=== PATIENT | female | born 1945 | race Caucasian/White ===

== ENCOUNTER → 2016-12-09 | Day surgery (SDC) | payer MEDICARE ==
[~2016-12-09] VITALS: Ht 167.6 cm; Wt 100.0 kg
[~2016-12-09] MED LIST: AMBI5TAB PO; BUPIVACAINE HCL PF 0.5% 30 ML VIAL ONE; CEPH-460 PO; CIPR500T2 PO; DULA10IN SQ; FAMOTIDINE 20 MG/2 ML VIAL ONE; HYDR-3288 PO; HYDR-3516 PO; LACTATED RINGER'S 1000 ML INJ 1,000 ML ONE; LIDOCAINE HCL 1% 20 ML VIAL ONE; LIDOCAINE HCL 2% 50 ML VIAL ONE; LISI20TA PO; METR-1 PO; MIDAZOLAM HCL 2 MG/2 ML VIAL ONE; NEOMYCIN/POLYMYXIN 1 ML G.U. IRRIGANT IR ONE; OMEP20TA PO; OXYB5TAB10 PO; PROPOFOL 200 MG/20 ML AMP IV ONE; SIMV20TA PO; SODIUM CHLORIDE 0.9% INJ 50 ML ONE; VENL75TA PO; ceFAZolin INJ 1,000 MG VIAL ONE
[2016-12-09 07:12] LABS: HEMATOCRIT 42.3 % (35.0-46.0); MEAN CELL VOLUME 88.1 FL (80.0-100.0); MEAN CORPUSCULAR HEMOGLOBIN 28.7 PG (27.0-34.0); MEAN CORPUSCULAR HGB CONC 32.6 % (32.0-36.0); PLATELET COUNT 293 TH/MM3 (150-450); REVIEW FLAG FINAL; WHITE BLOOD COUNT 7.3 TH/MM3 (4.0-11.0)
[2016-12-09 10:05] VITALS: BP 115/65; PULSE 79; RESP 16; TEMP 98.1; O2SAT 98
--- NOTE | 2016-12-09 11:07 | EKG ---
Date Performed: 12/09/2016 Time Performed: 07:04:06 PTAGE: 71 years EKG: Sinus rhythm WITH SINUS ARRHYTHMIA MARKED LEFT AXIS DEVIATION LOW QRS VOLTAGE IN PRECORDIAL LEADS ABNORMAL ECG NO PREVIOUS TRACING DOCTOR: Pato Strong Interpretating Date/Time 12/09/2016 11:06:44
--- NOTE | 2016-12-09 11:52 | MP ---
cc: RYAN JAIN III, M.D. 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 PROCEDURE 1. Revision amputation right middle finger with bony contouring and soft tissue rearrangement 2. Use of image intensifier SURGEON Ryan Jain III, MD PROCEDURE The patient brought to the operating room and placed supine on the operating table. After the correct site and side of surgery were verified by members of each team in the room multiple times including the patient, myself and after preop markings and preoperative written consent were verified by everyone and after adequate preoperative time-out was performed to everyone's satisfaction and after adequate IV sedation had been achieved, the right upper extremity was prepped and draped in tradition sterile surgical fashion. A 50/50 mixture of 2% plain lidocaine and 0.5% plain Marcaine was infiltrated in the skin and subcutaneous tissue at the level of palm at the metacarpal level to provide for right middle finger block. Using the mini C-arm, preoperative contour of the distal phalangeal remnant was visualized. The finger tourniquet using two smallest fingers from size 6 sterile gloves were applied to the middle finger. The previously made wound was used for the incision. This was at the distal most aspect of the nail bed remnant in the skin. Blunt and sharp dissection was then used to identified the distal phalangeal remnant and this was then recontoured to be more sloping and rounded and have less bony prominences radially and ulnarly. This was verified using mini C-arm. Following this, the skin and soft tissue rearrangement which included scar revision, as well as advancement flap closure to recontour the fingertip to a much more cosmetically pleasing appearance was done prior to the closure. A thorough irrigation was performed with saline and then 4-0 chromic sutures were used to close the tip of the finger. Multiple V-Y flap closures were used to re-contour the tip of the finger which was round and had a much more natural appearance. The final x-rays were obtained. The finger tourniquet was removed and the finger became soft, pink and warm with brisk capillary refill of less than two seconds. The hand and arm were thoroughly cleansed and dried. Betadine Adaptic dressings were applied on top of the wound followed by a bulky soft dressing. The patient awakened from anesthesia and transported to the Post Anesthesia Care Unit awake and in stable condition at the end of the case. Sponge, needle, and instrument counts were correct at the end of the case as reported by the nurses in the room. MD LEONORA Calixto III/SUSANNA /9:50 AM /11:35 AM
== END | disposition home or self-care (01) ==
LOC: HSDC 05:58
PROVIDERS: ATTEND Orthopaedic Surgery Hand Surgery
DX: T87.89 Other complications of amputation stump (principal); I10 Essential (primary) hypertension; E78.5 Hyperlipidemia, unspecified; Z01.818 Encounter for other preprocedural examination; Z01.810 Encounter for preprocedural cardiovascular examination
CPT/HCPCS: 01830; 26952; 36415; 76000; 85027; 93005; J0690; J2250; J7120

== ENCOUNTER 2017-02-05 19:34 | Inpatient (IN) | payer MEDICARE ==
[~2017-02-05] VITALS: Ht 172.7 cm; Wt 106.3 kg
[~2017-02-05 19:34] MED LIST changes: -AMBI5TAB PO; -BUPIVACAINE HCL PF 0.5% 30 ML VIAL ONE; -CEPH-460 PO; -CIPR500T2 PO; -FAMOTIDINE 20 MG/2 ML VIAL ONE; -HYDR-3288 PO; -HYDR-3516 PO; -LACTATED RINGER'S 1000 ML INJ 1,000 ML ONE; -LIDOCAINE HCL 1% 20 ML VIAL ONE; -LIDOCAINE HCL 2% 50 ML VIAL ONE; -METR-1 PO; -MIDAZOLAM HCL 2 MG/2 ML VIAL ONE; -NEOMYCIN/POLYMYXIN 1 ML G.U. IRRIGANT IR ONE; -PROPOFOL 200 MG/20 ML AMP IV ONE; -SODIUM CHLORIDE 0.9% INJ 50 ML ONE; -ceFAZolin INJ 1,000 MG VIAL ONE
[2017-02-05] MEDS ORDERED: SODIUM CHLOR 0.9% 1000 ML INJ 1,000 ML IV SCH (19:38)
[2017-02-05] MEDS ORDERED: ONDANSETRON HCL 4 MG/2 ML VIAL IVP ONE (19:45)
[2017-02-05] MEDS ORDERED: SODIUM CHLORIDE 0.9% FLUSH 5 ML FLUSH IVF PRN (19:45)
[2017-02-05] MEDS ORDERED: MORPHINE SULFATE 4 MG/ML INJ IV PUSH ONE ×2 (19:45→21:45)
[2017-02-05 19:48] VITALS: BP 125/55; PULSE 77; RESP 18; TEMP 98; O2SAT 99
--- NOTE | 2017-02-05 19:52 | PD ---
HPI Chief Complaint: abdominal pain Time Seen by Provider: 19:38 Travel History International Travel<30 days: No Contact w/Intl Traveler<30days: No History of Present Illness HPI This is a 71-year-old female who presents to the emergency department having had sudden onset of lower abdominal pain described as severe and cramping, associated with multiple episodes of vomiting and watery diarrhea,, constant to the point where she was vomiting and using the toilet at the same time. She feels feverish and chills. She said she just ate fish at [employer] about an hour prior to the onset of her symptoms. She's never been sick like this before. She does have a history of a gastroplasty which was reversed 20 years ago. Otherwise she's had no abdominal surgeries. PFSH Past Medical History Cancer: No Cardiovascular Problems: No Diabetes: No Endocrine: No Gastrointestinal Disorders: Yes (GERD) Genitourinary: No Hepatitis: No Hiatal Hernia: No Hypertension: Yes Immune Disorder: No Musculoskeletal: No Neurologic: No Psychiatric: No Reproductive: No Respiratory: No Thyroid Disease: No Menopausal: Yes Past Surgical History Abdominal Surgery: Yes (APPENDECTOMY, GASTROPLASTY) AICD: No Cardiac Surgery: No Ear Surgery: No Endocrine Surgery: No Eye Surgery: No Genitourinary Surgery: No Gynecologic Surgery: No Joint Replacement: Yes (BILAT TOTAL KNEE, RIGHT TOTAL HIP) Oral Surgery: No Pacemaker: No Thoracic Surgery: No Social History Alcohol Use: Yes (OCCASSIONAL BEER) Tobacco Use: No Allergies-Medications (Allergen,Severity, Reaction): Coded Allergies: No Known Allergies (Unverified , 02/05/17) Reported Meds & Prescriptions Reported Meds & Active Scripts Active Reported Trulicity Inj (Dulaglutide Inj) 0.75 Mg/0.5 Ml Pen 0.75 Mg SQ Q7D Lisinopril-Hctz 20-12.5 Mg Tab 1 Tab PO DAILY Omeprazole 20 Mg Tab 20 Mg PO DAILY Simvastatin Unknown Strength Tab Unknown Dose PO DAILY Effexor (Venlafaxine HCl) 75 Mg Tab 150 Mg PO Q12H Ditropan (Oxybutynin Chloride) 5 Mg Tab 10 Mg PO DAILY Review of Systems Except as stated in HPI: all other systems reviewed are Neg Physical Exam Narrative GENERAL: Uncomfortable appearing. SKIN: Warm and dry. HEAD: Atraumatic. Normocephalic. EYES: Pupils equal and round. No injection or drainage. ENT: Moist mucous membranes NECK: Trachea midline. CARDIOVASCULAR: Regular rate and rhythm. No murmur appreciated. RESPIRATORY: Clear to auscultation. Breath sounds equal bilaterally. GASTROINTESTINAL: Abdomen soft, tender to palpation in the epigastrium and lower abdomen with guarding. MUSCULOSKELETAL: No obvious deformities. NEUROLOGICAL: Awake and alert. No obvious cranial nerve deficits. Moving all extremities. PSYCHIATRIC: Appropriate mood and affect; insight and judgment normal. Data Data Last Documented VS Vital Signs Date Time Temp Pulse Resp B/P Pulse Ox O2 Delivery O2 Flow Rate FiO2 02/05/17 22:42 88 18 136/78 97 Room Air 02/05/17 19:48 98.0 Orders Complete Blood Count With Diff (02/05/17 19:38) Comprehensive Metabolic Panel (02/05/17 19:38) Lipase (02/05/17 19:38) Lactic Acid (02/05/17 19:38) Urinalysis - C+S If Indicated (02/05/17 19:38) Ct Abd/Pel W Iv Contrast(Rout) (02/05/17 19:38) Iv Access Insert/Monitor (02/05/17 19:38) Ecg Monitoring (02/05/17 19:38) Oximetry (02/05/17 19:38) Morphine Inj (Morphine Inj) (02/05/17 19:45) Ondansetron Inj (Zofran Inj) (02/05/17 19:45) Sodium Chlor 0.9% 1000 Ml Inj (Ns 1000 M (02/05/17 19:38) Sodium Chloride 0.9% Flush (Ns Flush) (02/05/17 19:45) Iodixanol 320 Inj (Visipaque 320 Inj) (02/05/17 21:31) Morphine Inj (Morphine Inj) (02/05/17 21:45) Blood Culture (02/05/17 21:38) Sodium Chlor 0.9% 1000 Ml Inj (Ns 1000 M (02/05/17 21:38) Sodium Chlor 0.9% 1000 Ml Inj (Ns 1000 M (02/05/17 21:38) Ciprofloxacin 400 Mg Premix (Cipro 400 M (02/05/17 21:45) Metronidazole 500 Mg Inj (Flagyl 500 Mg (02/05/17 21:45) Urine Culture (02/05/17 22:10) Admit Order (Ed Use Only) (02/05/17 22:43) Labs Laboratory Tests Test 02/05/17 02/05/17 20:11 22:10 White Blood Count 25.3 TH/MM3 Red Blood Count 5.46 MIL/MM3 Hemoglobin 16.0 GM/DL Hematocrit 48.6 % Mean Corpuscular Volume 89.1 FL Mean Corpuscular Hemoglobin 29.3 PG Mean Corpuscular Hemoglobin 32.9 % Concent Red Cell Distribution Width 14.3 % Platelet Count 340 TH/MM3 Mean Platelet Volume 8.0 FL Neutrophils (%) (Auto) 94.0 % Lymphocytes (%) (Auto) 3.1 % Monocytes (%) (Auto) 2.6 % Eosinophils (%) (Auto) 0.1 % Basophils (%) (Auto) 0.2 % Neutrophils # (Auto) 23.7 TH/MM3 Lymphocytes # (Auto) 0.8 TH/MM3 Monocytes # (Auto) 0.7 TH/MM3 Eosinophils # (Auto) 0.0 TH/MM3 Basophils # (Auto) 0.1 TH/MM3 CBC Comment DIFF FINAL Differential Comment Sodium Level 141 MEQ/L Potassium Level 4.3 MEQ/L Chloride Level 104 MEQ/L Carbon Dioxide Level 27.0 MEQ/L Anion Gap 10 MEQ/L Blood Urea Nitrogen 21 MG/DL Creatinine 1.63 MG/DL Estimat Glomerular Filtration 31 ML/MIN Rate Random Glucose 143 MG/DL Lactic Acid Level 3.4 mmol/L Calcium Level 8.8 MG/DL Total Bilirubin 0.9 MG/DL Aspartate Amino Transf 48 U/L (AST/SGOT) Alanine Aminotransferase 24 U/L (ALT/SGPT) Alkaline Phosphatase 132 U/L Total Protein 6.3 GM/DL Albumin 3.2 GM/DL Lipase 258 U/L Urine Color DARK-YELLOW Urine Turbidity CLOUDY Urine pH 6.0 Urine Specific Beaver 1.029 Urine Protein 30 mg/dL Urine Glucose (UA) TRACE mg/dL Urine Ketones NEG mg/dL Urine Occult Blood TRACE Urine Nitrite NEG Urine Bilirubin NEG Urine Urobilinogen 2.0 MG/DL Urine Leukocyte Esterase LARGE Urine RBC 3 /hpf Urine WBC 112 /hpf Urine Squamous Epithelial 46 /hpf Cells Urine Transitional Epithelial 1 /hpf Cells Urine Bacteria MOD /hpf Urine Hyaline Casts 5 /lpf Microscopic Urinalysis Comment CULTURE INDICATED [facility] Medical Decision Making Medical Screen Exam Complete: Yes Emergency Medical Condition: Yes Interpretation(s) Afebrile, no tachycardia, normotensive Leukocytosis Hemoconcentration 94% neutrophils GFR is 31 Lactic acid is 3.4 Urinalysis: pyuria but large amount of squamous epithelial cells Last 24 hours Impressions Abdomen/Pelvis CT 02/05/17 193 Signed Impressions: Service Date/Time: Sunday, February 05, 2017 21:28 - CONCLUSION: Moderate severity, uncomplicated long segment left-sided colitis, nonspecific but most likely infectious. C. difficile colitis would be in the differential. Kavon Sousa MD Differential Diagnosis Colitis, food poisoning, gastroenteritis, diverticulitis, appendicitis Narrative Course This is a 71-year-old female who presents to the emergency department with sudden onset severe nausea vomiting, diarrhea and lower abdominal pain. She was placed on a monitor and an IV was established. She was given antiemetics and pain control. Cultures were obtained and she was given Cipro and Flagyl. She was given IV hydration in the setting of sepsis. Labs demonstrate a marked leukocytosis and evidence of dehydration. CT demonstrates left-sided colitis. Patient will be admitted for continued IV antibiotics and IV hydration. Diagnosis Primary Impression: Colitis Additional Impression: Sepsis Qualified Code: A41.9 - Sepsis, due to unspecified organism Admitting Information Admitting Physician Requests: Admit Soco Rayo MD Feb 05, 2017 19:52
[2017-02-05 19:53] VITALS: O2SAT 98
[2017-02-05 20:22] LABS: AUTOMATED NEUTROPHIL # 23.7 TH/MM3 (1.8-7.7); BASOPHIL # 0.1 TH/MM3 (0-0.2); BASOPHIL % 0.2 % (0.0-2.0); EOSINOPHIL % 0.1 % (0.0-4.0); HEMATOCRIT 48.6 % (35.0-46.0); HEMO FLAGS DIFF FINAL; LYMPH % 3.1 % (9.0-44.0); LYMPHOCYTE # 0.8 TH/MM3 (1.0-4.8); MEAN CELL VOLUME 89.1 FL (80.0-100.0); MEAN CORPUSCULAR HEMOGLOBIN 29.3 PG (27.0-34.0); MEAN CORPUSCULAR HGB CONC 32.9 % (32.0-36.0); MONO % 2.6 % (0.0-8.0); PLATELET COUNT 340 TH/MM3 (150-450); RED BLOOD COUNT 5.46 MIL/MM3 (4.00-5.30); RED CELL DISTRIBUTION WIDTH 14.3 % (11.6-17.2); WHITE BLOOD COUNT 25.3 TH/MM3 (4.0-11.0)
[2017-02-05 20:39] LABS: ALKALINE PHOSPHATASE 132 U/L (45-117); ALT (GPT) 24 U/L (10-53); ANION GAP 10 MEQ/L (5-15); AST (GOT) 48 U/L (15-37); BLOOD UREA NITROGEN 21 MG/DL (7-18); CHLORIDE 104 MEQ/L (98-107); GLOMERULAR FILTRATION RATE 31 ML/MIN (>89); SODIUM (NA) 141 MEQ/L (136-145); TOTAL BILIRUBIN ADULT 0.9 MG/DL (0.2-1.0)
[2017-02-05 20:51] LABS: POTASSIUM 4.3 MEQ/L (3.5-5.1)
[2017-02-05] MEDS ORDERED: IODIXANOL 320 MG/ML 10 ML VIAL (for RAD SPEC) IV ONE (21:31)
[2017-02-05] MEDS ORDERED: SODIUM CHLOR 0.9% 1000 ML INJ 700 ML IV ONE (21:38)
[2017-02-05] MEDS ORDERED: SODIUM CHLOR 0.9% 1000 ML INJ 1,000 ML IV ONE (21:38)
[2017-02-05] MEDS ORDERED: metroNIDAZOLE 500 MG INJ 100 ML IV ONE (21:45)
[2017-02-05] MEDS ORDERED: CIPROFLOXACIN 400 MG PREMIX 200 ML IV ONE (21:45)
[2017-02-05 22:24] LABS: BACTERIA, URINE MOD /hpf; BLOOD, URINE TRACE (NEG); COMMENT (UR) CULTURE INDICATED; CULTURE IF INDICATED CULTURE INDICATED; GLUCOSE,URINE TRACE mg/dL (NEG); HYALINE CAST, URINE 5 /lpf (RARE); KETONE, URINE NEG (NEG); NITRITE,URINE NEG (NEG); SQUAMOUS EPITHELIAL CELL URINE 46 /hpf (0-5); TRANSITIONAL EPI CELLS, URINE 1 /hpf; URINE COLOR DARK-YELLOW (YELLW/STRAW)
--- NOTE | 2017-02-05 22:32 | RADRPT ---
EXAM DATE/TIME: 02/05/2017 21:28 [facility] COMPARISON: No previous studies available for comparison. INDICATIONS : Abdominal pain, vomiting and diarrhea; suspected food poisoning. IV CONTRAST: 46 cc Visipaque (iodixanol) IV ORAL CONTRAST: No oral contrast ingested. RADIATION DOSE: 22.00 CTDIvol (mGy) MEDICAL HISTORY : Hypertension. SURGICAL HISTORY : Appendectomy. Right hip replacement; gastroplasty ENCOUNTER: Initial ACUITY: 1 day PAIN SCALE: 7/10 LOCATION: abdomen TECHNIQUE: Volumetric scanning of the abdomen and pelvis was performed. Using automated exposure control and ad justment of the mA and/or kV according to patient size, radiation dose was kept as low as reasonably achievable to obtain optimal diagnostic quality images. FINDINGS: LOWER LUNGS: The visualized lower lungs are clear. LIVER: Homogeneous density without lesion. There is no dilation of the biliary tree. No calcified gallston es. SPLEEN: Normal size without lesion. PANCREAS: Within normal limits. KIDNEYS: Normal in size and shape. There is no mass, stone or hydronephrosis. ADRENAL GLANDS: Within normal limits. VASCULAR: There is no aortic aneurysm. BOWEL/MESENTERY: Previous gastric bypass. Small bowel within normal limits. Moderate severity inflammatory changes wit h wall thickening seen of the left side of the colon beginning at the level of the transverse colon. Cecum and rectum are spared. No abscess, obstruction or free air. No diverticula are seen. ABDOMINAL WALL: Within normal limits. RETROPERITONEUM: There is no lymphadenopathy. BLADDER: No wall thickening or mass. REPRODUCTIVE: Within normal limits. INGUINAL: There is no lymphadenopathy or hernia. MUSCULOSKELETAL: No acute bony abnormality demonstrated. Previous right bipolar hip arthroplasty. CONCLUSION: Moderate severity, uncomplicated long segment left-sided colitis, nonspecific but most likely infecti ous. C. difficile colitis would be in the differential. Kavon Sousa MD on February 05, 2017 at 22:28 Board Certified Radiologist. This report was verified electronically.
[2017-02-05 22:42] VITALS: BP 136/78; PULSE 88; RESP 18; O2SAT 97
[2017-02-05] MEDS ORDERED: NALOXONE HCL 0.4 MG/ML AMP IV PRN (23:30)
[2017-02-05] MEDS ORDERED: SODIUM CHLORIDE 0.9% FLUSH 5 ML FLUSH FLUSH PRN (23:30)
[2017-02-05] MEDS ORDERED: KETOROLAC TROMETHAMINE 30 MG/ML (IVP) VIAL IV PUSH PRN (23:45)
[2017-02-06] VITALS (7 sets, daily range): BP systolic 79–128; BP diastolic 47–71; PULSE 84–119; RESP 18–20; TEMP 97.6–100; O2SAT 90–97
[2017-02-06] MEDS: SODIUM CHLOR 0.9% 1000 ML INJ 1,000 ML IV SCH ×4 (00:10→21:06)
[2017-02-06] MEDS: metroNIDAZOLE 500 MG INJ 100 ML IV SCH ×4 (00:10→21:06)
[2017-02-06] MEDS: PANTOPRAZOLE SODIUM 40 MG VIAL IV PUSH SCH ×2 (00:47→09:06)
[2017-02-06 03:47] LABS: C. DIFF EPI 027 PRESUMPTIVE NEGATIVE (NEGATIVE); C. DIFF TOXIN PCR NEGATIVE (NEGATIVE)
[2017-02-06 07:28] LABS: AUTOMATED NEUTROPHIL # 16.3 TH/MM3 (1.8-7.7); BASOPHIL % 0.1 % (0.0-2.0); HEMATOCRIT 44.1 % (35.0-46.0); HEMO FLAGS DIFF FINAL; LYMPH % 1.7 % (9.0-44.0); LYMPHOCYTE # 0.3 TH/MM3 (1.0-4.8); MEAN CELL VOLUME 90.4 FL (80.0-100.0); MEAN CORPUSCULAR HEMOGLOBIN 29.3 PG (27.0-34.0); MEAN CORPUSCULAR HGB CONC 32.5 % (32.0-36.0); MONO % 4.6 % (0.0-8.0); NEUT % 93.6 % (16.0-70.0); PLATELET COUNT 259 TH/MM3 (150-450); RED BLOOD COUNT 4.88 MIL/MM3 (4.00-5.30); RED CELL DISTRIBUTION WIDTH 14.4 % (11.6-17.2); WHITE BLOOD COUNT 17.4 TH/MM3 (4.0-11.0)
[2017-02-06 07:46] LABS: BICARBONATE 24.1 MEQ/L (21.0-32.0); POTASSIUM 4.1 MEQ/L (3.5-5.1)
[2017-02-06] MEDS: SODIUM CHLORIDE 0.9% FLUSH 5 ML FLUSH FLUSH SCH ×2 (09:05→21:06)
[2017-02-06] MEDS: CIPROFLOXACIN 400 MG PREMIX 200 ML IV SCH ×2 (09:06→21:06)
--- NOTE | 2017-02-06 10:13 | PD.CONS ---
HPI History of Present Illness This is a 71 year old female with out any major medical issues aside from having gastroplasty which was reversed more than 10 years ago, who presents to the emergency department with acute sudden onset of lower abdominal pain described as severe and cramping, associated with multiple episodes of vomiting and watery diarrhea. States "things were coming both ends, non stop, went on for hours". She denies hematemesis, hematochezia or melena. Reports fever and chills. She denies recent sick contact, recent abx or travel. She had fish at [employer] about an hour prior to the onset of her symptoms. No previous history of this. Last colonoscopy was [address] 02/05/17 Moderate severity, uncomplicated long segment left-sided colitis, nonspecific but most likely infectious. C. difficile colitis would be in the differential. Stools were negative for C-diff, stool cx pending. labs significant for acute kidney injury, leukocytosis, elevated AST and ALP. Started on cipro and Flagyl (Amawi,Khawla [employer]) PFSH Past Medical History GERD Past Surgical History Gastroplasty and reversal more than 10 years ago appendectomy hip and knees surgery (Amawi,Nereidaawla [employer]) Coded Allergies: No Known Allergies (Unverified , 02/05/17) Medications Current Medications Medications (Trade) Dose Ordered Sig/Amador Route Start Time Stop Time Status Last Admin (NS 1000 ml Inj) 1,000 ml @ 100 mls/hr Q10H IV 02/05/17 23:28 02/06/17 00:10 (NS Flush) 2 ml UNSCH PRN FLUSH 02/05/17 23:30 (NS Flush) 2 ml BID FLUSH 02/06/17 09:00 02/06/17 09:05 (Tylenol) 650 mg Q4H PRN PO 02/05/17 23:30 (Zofran Inj) 4 mg Q4HR PRN IVP 02/05/17 23:30 Naloxone HCl 0.4 mg 0.4 mg UNSCH PRN IV 02/05/17 23:30 Ciprofloxacin/ Dextrose 200 ml @ 200 mls/hr Q12H IV 02/06/17 09:00 02/06/17 09:06 (Flagyl 500 Mg Inj) 100 ml @ 100 mls/hr Q8HR IV 02/06/17 06:00 02/06/17 05:36 (Protonix Inj) 40 mg DAILY IV PUSH 02/05/17 23:45 02/06/17 09:06 Family History No family history of colon cancer Social History Alcohol Use: Yes (OCCASIONAL BEER) Tobacco Use: No (Christopher Harris) Review of Systems Constitutional: COMPLAINS OF: Fever, Chills Endocrine: DENIES: Polyuria Eyes: DENIES: Double Vision Ears, nose, mouth, throat: DENIES: Hoarseness Respiratory: DENIES: Shortness of breath Cardiovascular: DENIES: Lower Extremity Edema Gastrointestinal: COMPLAINS OF: Abdominal pain, Diarrhea, Nausea, Vomiting, DENIES: Black stools, Bloody stools, Constipation, Difficulty Swallowing, Anorexia, Odynophagia, Swelling of Abdomen, Hematemesis Genitourinary: DENIES: Hematuria Musculoskeletal: DENIES: Back pain Integumentary: DENIES: Jaundice Hematologic/lymphatic: DENIES: Bruising Immunologic/allergic: DENIES: Eczema Neurologic: DENIES: Abnormal gait Psychiatric: DENIES: Anxiety (Christopher Harris) GI Exam Vitals I&O Vital Signs Date Time Temp Pulse Resp B/P Pulse Ox O2 Delivery O2 Flow Rate FiO2 02/06/17 08:53 97.6 97 18 128/71 91 02/06/17 04:00 98.9 84 20 121/62 91 02/06/17 01:15 97.9 96 18 103/62 90 02/06/17 01:15 97.9 96 18 103/62 90 02/06/17 00:50 18 02/06/17 00:50 18 02/05/17 22:42 88 18 136/78 97 Room Air 02/05/17 19:53 98 Room Air 02/05/17 19:48 98.0 77 18 125/55 99 I/O 02/05/17 02/05/17 02/05/17 02/06/17 02/06/17 02/06/17 07:00 15:00 23:00 07:00 15:00 23:00 Intake Total 417 ml Output Total 400 ml Balance 17 ml Intake Oral 0 ml IV Total 417 ml Output Urine Total 400 ml # Voids 1 # Bowel Movements 1 Imaging Last Impressions Abdomen/Pelvis CT 02/05/171937 Signed Impressions: Service Date/Time: Sunday, February 05, 2017 21:28 - CONCLUSION: Moderate severity, uncomplicated long segment left-sided colitis, nonspecific but most likely infectious. C. difficile colitis would be in the differential. Kavon Sousa MD Laboratory Test 02/05/17 02/05/17 02/06/17 02/06/17 20:11 22:10 01:50 05:46 White Blood Count 25.3 TH/MM3 17.4 TH/MM3 Red Blood Count 5.46 MIL/MM3 4.88 MIL/MM3 Hemoglobin 16.0 GM/DL 14.3 GM/DL Hematocrit 48.6 % 44.1 % Mean Corpuscular Volume 89.1 FL 90.4 FL Mean Corpuscular Hemoglobin 29.3 PG 29.3 PG Mean Corpuscular Hemoglobin 32.9 % 32.5 % Concent Red Cell Distribution Width 14.3 % 14.4 % Platelet Count 340 TH/MM3 259 TH/MM3 Mean Platelet Volume 8.0 FL 8.1 FL Neutrophils (%) (Auto) 94.0 % 93.6 % Lymphocytes (%) (Auto) 3.1 % 1.7 % Monocytes (%) (Auto) 2.6 % 4.6 % Eosinophils (%) (Auto) 0.1 % 0.0 % Basophils (%) (Auto) 0.2 % 0.1 % Neutrophils # (Auto) 23.7 TH/MM3 16.3 TH/MM3 Lymphocytes # (Auto) 0.8 TH/MM3 0.3 TH/MM3 Monocytes # (Auto) 0.7 TH/MM3 0.8 TH/MM3 Eosinophils # (Auto) 0.0 TH/MM3 0.0 TH/MM3 Basophils # (Auto) 0.1 TH/MM3 0.0 TH/MM3 CBC Comment DIFF FINAL DIFF FINAL Differential Comment Sodium Level 141 MEQ/L 144 MEQ/L Potassium Level 4.3 MEQ/L 4.1 MEQ/L Chloride Level 104 MEQ/L 109 MEQ/L Carbon Dioxide Level 27.0 MEQ/L 24.1 MEQ/L Anion Gap 10 MEQ/L 11 MEQ/L Blood Urea Nitrogen 21 MG/DL 26 MG/DL Creatinine 1.63 MG/DL 1.34 MG/DL Estimat Glomerular Filtration 31 ML/MIN 39 ML/MIN Rate Random Glucose 143 MG/DL 145 MG/DL Lactic Acid Level 3.4 mmol/L Calcium Level 8.8 MG/DL 8.1 MG/DL Total Bilirubin 0.9 MG/DL Aspartate Amino Transf 48 U/L (AST/SGOT) Alanine Aminotransferase 24 U/L (ALT/SGPT) Alkaline Phosphatase 132 U/L Total Protein 6.3 GM/DL Albumin 3.2 GM/DL Lipase 258 U/L Urine Color DARK-YELLOW Urine Turbidity CLOUDY Urine pH 6.0 Urine Specific Roann 1.029 Urine Protein 30 mg/dL Urine Glucose (UA) TRACE mg/dL Urine Ketones NEG mg/dL Urine Occult Blood TRACE Urine Nitrite NEG Urine Bilirubin NEG Urine Urobilinogen 2.0 MG/DL Urine Leukocyte Esterase LARGE Urine RBC 3 /hpf Urine WBC 112 /hpf Urine Squamous Epithelial 46 /hpf Cells Urine Transitional Epithelial 1 /hpf Cells Urine Bacteria MOD /hpf Urine Hyaline Casts 5 /lpf Microscopic Urinalysis Comment CULTURE INDICATED Stool C. difficile Toxin (PCR) NEGATIVE Stl C. difficile Toxin PRESUMPTIVE Epiderm 027 NEGATIVE Date/Time Procedure Status Source Growth 02/06/17 01:50 Cryptosporidium Exam Received Stool Stool Pending 02/06/17 01:50 Giardia Antigen (ANGELA) Received Stool Stool Pending 02/05/17 22:10 Urine Culture Received Urine Clean Catch Pending 02/05/17 22:10 Aerobic Blood Culture Received Blood Peripheral Pending 02/05/17 22:10 Anaerobic Blood Culture Received Blood Peripheral Pending Physical Examination HEENT: normocephalic; atraumatic; no jaundice. NECK: Neck is supple, no JVD, no lymphadenopathy. CHEST: Chest is clear to auscultation and percussion. CARDIAC: Regular rate and rhythm with no murmur gallop or rubs. ABDOMEN: Soft, nondistended, diffused tenderness; no hepatosplenomegaly; bowel sounds are present in all four quadrants. EXTREMITIES: No clubbing, cyanosis, or edema. SKIN: Normal; no rash; no jaundice. PIPE STEM ALIGNER: No focal deficits; alert and oriented times three. (Christopher Harris) Assessment and Plan Plan - Acute colitis- acute sudden onset of lower abdominal pain described as severe and cramping, associated with multiple episodes of vomiting and watery diarrhea. States "things were coming both ends, non stop, went on for hours". She denies hematemesis, hematochezia or melena. Reports fever and chills. She denies recent sick contact, recent abx or travel. She had fish at [employer] about an hour prior to the onset of her symptoms. No previous history of this. Last colonoscopy was [address] 02/05/17 Moderate severity, uncomplicated long segment left-sided colitis, nonspecific but most likely infectious. C. difficile colitis would be in the differential. Stools were negative for C-diff, stool cx pending. labs significant for acute kidney injury, leukocytosis, elevated AST and ALP. Started on cipro and Flagyl - Chronic GERD- under control with Omeprazole - Leukocytosis- secondary to above, possible UTI - Elevates AST/ALP- likely to acute infection, will monitor, hepatitis panel - TD- likely to dehydration Plan: - HIREN - Cont. Cipro/Flagyl - Colonoscopy on Wednesday - Obtain consents - Await stool cx - hepatitis panel - CBC, CMP in am - Supportive care - Patient seen and examined by Dr. Nelson and myself and this note is written on his behalf. (Christopher Harris) Physician Comments Seen and examined with MCKAY, colitis on antibiotics. Colonoscopy planned for wednesday. C. Diff -ve. Discussed with pt. and family. Thank you (Emi Nelson MD) Christopher Harris Feb 06, 2017 10:12 Emi Nelson MD Feb 06, 2017 13:07
[2017-02-06] MEDS: ACETAMINOPHEN 325 MG TAB PO PRN ×3 (10:30→19:41)
[2017-02-06] MEDS: VENLAFAXINE HCL XR 75 MG CAP PO SCH (21:00)
[2017-02-07] VITALS (7 sets, daily range): BP systolic 100–126; BP diastolic 53–74; PULSE 83–104; RESP 18–22; TEMP 97.5–99.4; O2SAT 92–97
[2017-02-07] MEDS: metroNIDAZOLE 500 MG INJ 100 ML IV SCH ×3 (05:25→22:26)
[2017-02-07 07:52] LABS: AUTOMATED NEUTROPHIL # 10.6 TH/MM3 (1.8-7.7); BASOPHIL % 0.3 % (0.0-2.0); EOSINOPHIL % 0.1 % (0.0-4.0); HEMATOCRIT 36.6 % (35.0-46.0); HEMO FLAGS DIFF FINAL; LYMPH % 3.8 % (9.0-44.0); LYMPHOCYTE # 0.4 TH/MM3 (1.0-4.8); MEAN CELL VOLUME 89.5 FL (80.0-100.0); MEAN CORPUSCULAR HEMOGLOBIN 29.7 PG (27.0-34.0); MEAN CORPUSCULAR HGB CONC 33.2 % (32.0-36.0); MONO % 5.7 % (0.0-8.0); NEUT % 90.1 % (16.0-70.0); PLATELET COUNT 214 TH/MM3 (150-450); RED BLOOD COUNT 4.09 MIL/MM3 (4.00-5.30); RED CELL DISTRIBUTION WIDTH 14.4 % (11.6-17.2); WHITE BLOOD COUNT 11.8 TH/MM3 (4.0-11.0)
[2017-02-07 08:22] LABS: ALKALINE PHOSPHATASE 58 U/L (45-117); ALT (GPT) 17 U/L (10-53); ANION GAP 9 MEQ/L (5-15); AST (GOT) 13 U/L (15-37); BICARBONATE 26.2 MEQ/L (21.0-32.0); BLOOD UREA NITROGEN 28 MG/DL (7-18); CHLORIDE 111 MEQ/L (98-107); GLOMERULAR FILTRATION RATE 52 ML/MIN (>89); POTASSIUM 3.5 MEQ/L (3.5-5.1); SODIUM (NA) 146 MEQ/L (136-145); TOTAL BILIRUBIN ADULT 0.6 MG/DL (0.2-1.0)
[2017-02-07] MEDS: CIPROFLOXACIN 400 MG PREMIX 200 ML IV SCH ×2 (08:55→22:26)
[2017-02-07] MEDS: ACETAMINOPHEN 325 MG TAB PO PRN ×2 (08:55→14:40)
[2017-02-07] MEDS: PANTOPRAZOLE SODIUM 40 MG VIAL IV PUSH SCH (08:56)
[2017-02-07] MEDS: LISINOPRIL 20 MG TAB PO SCH (08:57)
[2017-02-07] MEDS: HYDROCHLOROTHIAZIDE 12.5 MG CAP PO SCH (08:57)
[2017-02-07] MEDS: SODIUM CHLORIDE 0.9% FLUSH 5 ML FLUSH FLUSH SCH ×2 (08:58→22:27)
[2017-02-07] MEDS: VENLAFAXINE HCL XR 75 MG CAP PO SCH ×2 (09:00→22:27)
[2017-02-07] MEDS ORDERED: NON-FORMULARY DRUG (Lisinopril-Hctz 1 TAB) PO SCH (09:00)
--- NOTE | 2017-02-07 11:22 | HHI.PR ---
Subjective Remarks Resting in bed Alert, cooperative in room Abdominal cramping, attempting to tolerate clear liquids Diarrhea again this a.m. at 700 Low-grade temp (Rashida Leger) Objective Objective Results - Vital Signs Date Time Temp Pulse Resp B/P Pulse Ox O2 Delivery O2 Flow Rate FiO2 02/07/17 09:55 15 02/07/17 08:00 99.0 104 22 124/74 92 02/07/17 04:00 99.4 95 22 126/68 92 02/07/17 00:00 99.0 83 20 117/53 97 02/06/17 20:00 98 02/06/17 20:00 98.1 119 20 121/55 97 02/06/17 16:18 100.0 109 18 79/47 92 02/06/17 15:00 91 02/06/17 12:56 97.9 107 18 113/59 90 I/O 02/06/17 02/06/17 02/06/17 02/07/17 02/07/17 02/07/17 07:00 15:00 23:00 07:00 15:00 23:00 Intake Total 417 ml 1474 ml 1272 ml 1063 ml Output Total 400 ml 600 ml Balance 17 ml 1474 ml 1272 ml 463 ml Intake Oral 0 ml 480 ml 480 ml 240 ml IV Total 417 ml 994 ml 792 ml 823 ml Output Urine Total 400 ml 600 ml # Voids 3 # Bowel Movements 1 0 1 (Rasihda Leger) Result Diagram: 02/07/17 0630 02/07/17 0630 ROS General: Fatigue (easily with diarrhea), Weakness (generalized), Other (10 point ROS done area and positives include diarrhea generalized weakness and fatigue and abdominal pain. Other systems negative or unremarkable.) GI: Abdominal Pain, Diarrhea (Rashida Leger) Physical Exam Physical Exam PHYSICAL EXAMINATION GENERAL: This is an obese well-developed, well-nourished female Resting in the bed She is alert and awake, good historian HEAD: Normocephalic without any lesion or mass noted. Facial features appear symmetric. PERRLA OROPHARYNGEAL: Oropharynx without erythema or edema. NECK: Supple. No nuchal rigidity or lymphadenopathy. Trachea midline without deviation. CARDIAC: Regular rhythm, regular rate, S1 and S2 are heard. Murmur none; no gallops or rubs. LUNGS: Clear to auscultation bilaterally. None wheeze, no rhonchi No use of accessory muscles on inspiration or expiration. ABDOMEN: taut, tender over her mid to lower quadrants Bowel sounds are heard in all four quadrants. Mild guarding. EXTREMITIES: No edema. Pulses equal bilateral. NEUROLOGICAL: Patient mood and affect appropriate. No focal deficit SKIN:Warm and moist, dry Objective Remarks I thought I was doing better until this morning. The diarrhea started up again. (Rashida Leger) A/P Assessment and Plan Colitis, Diarrhea had subsided yesterday for approximately 12 or more hours, but started up again approximately 0700 this morning. Patient had a fairly long episode of explosive diarrhea and abdominal cramping. Patient is trying to tolerate clear liquids, but is still having periods of generalized mid and lower abdominal cramping left and right quadrant/ and mid. Appreciate GI consult. Plan is to do colonoscopy in the morning. Patient understands prep for this p.m. Leukocytosis, improving, labs reviewed the BBC count 11.8 this a.m. continue IV hydration at 100 cc an hour, clear liquids as tolerated, antibiotic therapy Lactic acid sepsis, emperic antibiotics, probable secondary to colitis. Monitor labs, hydration Acute kidney injury Hydration continues at 100 cc an hour, probable secondary to diarrhea and dehydration. We'll continue to monitor labs. Currently B UN 28, creatinine 1.05. Essentially unchanged Protein calorie malnutrition, moderate Discussed the need for nutritional intake of good protein sources We'll follow labs and needs. Appreciate GI input Discussed with patient discussed with Discussed with Dr. Campbell, a shunt seen on her behalf (Rashida Leger) Assessment and Plan 71yr old female seen and examined today. C/o lower abd pain/diarrea multiple times. Plan for colonoscopy in am. Appreciate GI input. Continue cipro/flagyl/IVF. Clear liq diet today. NPO from midnight. A/P discussed with Rashida. Will monitor. (Clari Campbell MD) Rashida Leger Feb 07, 2017 11:22 Clari Campbell MD Feb 07, 2017 14:58
--- NOTE | 2017-02-07 13:32 | HHI.GIFU ---
Subjective Remarks 71 yo female lying in bed in no apparent distress. Reports continuous lower abdominal pain. Has had diarrhea multiple times. (Angela Tapia) Objective Vitals I&O Vital Signs Date Time Temp Pulse Resp B/P Pulse Ox O2 Delivery O2 Flow Rate FiO2 02/07/17 12:00 99.3 94 20 100/59 95 02/07/17 09:55 15 02/07/17 08:00 99.0 104 22 124/74 92 02/07/17 04:00 99.4 95 22 126/68 92 02/07/17 00:00 99.0 83 20 117/53 97 02/06/17 20:00 98 02/06/17 20:00 98.1 119 20 121/55 97 02/06/17 16:18 100.0 109 18 79/47 92 02/06/17 15:00 91 I/O 02/06/17 02/06/17 02/06/17 02/07/17 02/07/17 02/07/17 07:00 15:00 23:00 07:00 15:00 23:00 Intake Total 417 ml 1474 ml 1272 ml 1063 ml Output Total 400 ml 600 ml Balance 17 ml 1474 ml 1272 ml 463 ml Intake Oral 0 ml 480 ml 480 ml 240 ml IV Total 417 ml 994 ml 792 ml 823 ml Output Urine Total 400 ml 600 ml # Voids 3 # Bowel Movements 1 0 1 Laboratory Laboratory Tests Test 02/07/17 06:30 White Blood Count 11.8 Red Blood Count 4.09 Hemoglobin 12.1 Hematocrit 36.6 Mean Corpuscular Volume 89.5 Mean Corpuscular Hemoglobin 29.7 Mean Corpuscular Hemoglobin 33.2 Concent Red Cell Distribution Width 14.4 Platelet Count 214 Mean Platelet Volume 7.7 Neutrophils (%) (Auto) 90.1 Lymphocytes (%) (Auto) 3.8 Monocytes (%) (Auto) 5.7 Eosinophils (%) (Auto) 0.1 Basophils (%) (Auto) 0.3 Neutrophils # (Auto) 10.6 Lymphocytes # (Auto) 0.4 Monocytes # (Auto) 0.7 Eosinophils # (Auto) 0.0 Basophils # (Auto) 0.0 CBC Comment DIFF FINAL Differential Comment Sodium Level 146 Potassium Level 3.5 Chloride Level 111 Carbon Dioxide Level 26.2 Anion Gap 9 Blood Urea Nitrogen 28 Creatinine 1.05 Estimat Glomerular Filtration 52 Rate Random Glucose 111 Calcium Level 7.8 Total Bilirubin 0.6 Aspartate Amino Transf 13 (AST/SGOT) Alanine Aminotransferase 17 (ALT/SGPT) Alkaline Phosphatase 58 Total Protein 5.2 Albumin 2.5 Date/Time Procedure Status Source Growth 02/06/17 01:50 Cryptosporidium Exam Received Stool Stool Pending 02/06/17 01:50 Giardia Antigen (ANGELA) Received Stool Stool Pending 02/05/17 22:10 Urine Culture - Preliminary Resulted Urine Clean Catch RESULTS PENDING 02/05/17 22:10 Aerobic Blood Culture - Preliminary Resulted Blood Peripheral NO GROWTH IN 2 DAYS 02/05/17 22:10 Anaerobic Blood Culture - Preliminary Resulted Blood Peripheral NO GROWTH IN 2 DAYS 02/05/17 21:38 Aerobic Blood Culture Received Blood Peripheral Pending 02/05/17 21:38 Anaerobic Blood Culture Received Blood Peripheral Pending Imaging Last Impressions Abdomen/Pelvis CT 02/05/178 Signed Impressions: Service Date/Time: Sunday, February 05, 2017 21:28 - CONCLUSION: Moderate severity, uncomplicated long segment left-sided colitis, nonspecific but most likely infectious. C. difficile colitis would be in the differential. Kaovn Sousa MD Physical Exam HEENT: PERRLA; normocephalic; atraumatic; no jaundice. NECK: Neck is supple, no JVD, no lymphadenopathy. CHEST: CTA CARDIAC: RRR with no murmur gallop or rubs. ABDOMEN: Soft, obese, mild tenderness on palpation of lower abdomen; no hepatosplenomegaly; bowel sounds are present x 4 quadrants. EXTREMITIES: No clubbing, cyanosis, or edema. SKIN: Normal; no rash; no jaundice. TILE PRESSER: No focal deficits; A&O x3. (nAgela Tapia) Assessment and Plan Plan ASSESSMENT: - Acute colitis- Sudden onset of lower abdominal pain described as severe and cramping, associated with multiple episodes of vomiting and watery diarrhea. States "things were coming both ends, non stop, went on for hours". She denies hematemesis, hematochezia or melena. Reports fever and chills. She denies recent sick contact, recent abx or travel. She had fish at [employer] about an hour prior to the onset of her symptoms. No previous history of this. Last colonoscopy was [address] 02/05/17--> Moderate severity, uncomplicated long segment left-sided colitis, nonspecific but most likely infectious. C. difficile colitis would be in the differential. Stools were negative for C-diff, stool cx pending. AST and Alk Phos now improved. Hepatitis panel pending. On Cipro and Flagyl - Chronic GERD- under control with Omeprazole - Leukocytosis- improving. Secondary to above, possible UTI. WBC 11.8, Neut 90.1 %. - TD- likely to dehydration PLAN: - Cont. Cipro/Flagyl - Colonoscopy on Wednesday - Obtain consents - Clear liquid diet today - [facility] - Await stool cx - Hepatitis panel pending. - Supportive care - Further recommendations to follow based on results of above. Patient seen and examined by Dr. Nelson and myself and this note is written on his behalf. (Angela Tapia) Physician Comments Seen and examined with MCKAY, colonoscopy planned for tomorrow, continue antibiotics. stool studies -ve so far (Emi Nelson MD) Angela Tapia Feb 07, 2017 13:32 Emi Nelson MD Feb 07, 2017 15:19
[2017-02-07] MEDS ORDERED: PEG (High)/E-LYTE SOLN 4000 ML BTL PO ONE (16:00)
[2017-02-07] MEDS: ONDANSETRON HCL 4 MG/2 ML VIAL IVP PRN (19:14)
[2017-02-08] VITALS (9 sets, daily range): BP systolic 110–142; BP diastolic 61–80; PULSE 88–100; RESP 18–20; TEMP 97.3–98.8; O2SAT 92–99
[2017-02-08] MEDS: ACETAMINOPHEN 325 MG TAB PO PRN ×3 (00:27→22:00)
[2017-02-08] MEDS: metroNIDAZOLE 500 MG INJ 100 ML IV SCH ×3 (05:40→21:42)
[2017-02-08] MEDS: SODIUM CHLOR 0.9% 1000 ML INJ 1,000 ML IV SCH ×2 (08:38→21:42)
[2017-02-08] MEDS: SODIUM CHLORIDE 0.9% FLUSH 5 ML FLUSH FLUSH SCH ×2 (08:38→21:00)
[2017-02-08] MEDS: CIPROFLOXACIN 400 MG PREMIX 200 ML IV SCH ×2 (08:39→21:43)
[2017-02-08] MEDS: VENLAFAXINE HCL XR 75 MG CAP PO SCH ×2 (08:39→21:40)
[2017-02-08] MEDS: HYDROCHLOROTHIAZIDE 12.5 MG CAP PO SCH (08:39)
[2017-02-08] MEDS: PANTOPRAZOLE SODIUM 40 MG VIAL IV PUSH SCH (08:39)
[2017-02-08] MEDS: LISINOPRIL 20 MG TAB PO SCH (08:40)
--- NOTE | 2017-02-08 10:20 | MH ---
DATE OF ADMISSION: 02/05/2017 ADMITTING PHYSICIAN JOHN STOKES MD CHIEF COMPLAINT Abdominal pain. HISTORY OF PRESENT ILLNESS This is a pleasant 71-year-old white female who was in her usual state of health until yesterday. She went and [facility] and approximately an hour later began having symptoms of severe nausea, vomiting and diarrhea. The patient also noted severe abdominal cramping and states that she has never been sick like this before. The patient went home and tried to rest but symptoms continued to worsen and she was brought to the emergency room per her for evaluation. The patient does have a history of gastroplasty approximately 20 years ago according to the record, but other than that has had no issues with her abdomen. The patient denies any chest pain, no shortness of breath, no acute weight loss or weight gain, no fever before last night, and no headache. When the patient presented to the emergency room she did complain of generalized malaise, fever and chills. The patient also notes some pain on urination. She states that this has been occurring for the past few days before admission to the hospital. She did not note any hematuria. PAST MEDICAL HISTORY 1. Gastroesophageal reflux disease. 2. Hypertension. 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 ALLERGIES NO KNOWN. MEDICATIONS REPORTED 1. Lisinopril. 2. Omeprazole. 3. Simvastatin. 4. Effexor. 5. Ditropan. 6. Trulicity injection. REVIEW OF SYSTEMS A 10-point review was done, positives included what is mentioned in the HPI, severe cramping, nausea, vomiting, diarrhea, abdominal pain, dysuria; other than that systems are negative or unremarkable. SOCIAL HISTORY The patient is and lives in a home with . She has no tobacco use but occasional alcohol use with beer social. No illicit drugs. FAMILY HISTORY N/A. PHYSICAL EXAMINATION VITAL SIGNS: Temperature 97.9, highest is 98.9, pulse 97 labile between 84-97, respirations 18, blood pressure 128/71, initially in the ER last night 136/78, O2 sat ranges between 90-98. GENERAL: Obese, white female, looks to be her stated age, resting in the bed, no facial grimace. HEENT: Atraumatic, normocephalic. PERRLA. Mucous membranes are pink and dry. NECK: Neck is thick, supple. CARDIOVASCULAR: Heart sounds S1, S2. Regular rate and rhythm. No murmurs, rubs or gallops appreciated. She has no peripheral edema and her pulses are intact. PULMONARY: Essentially clear anteriorly and posteriorly. No wheezes, rales or rhonchi. ABDOMEN: Abdomen is obese, round, soft to light palpation. No guarding. Light palpation mild generalized tenderness. GENITOURINARY: Deferred. MUSCULOSKELETAL: Moves her extremities with purpose. Equal hand drive man, can overcome resistance. NEUROLOGIC: She is alert, oriented, a good historian. No obvious cranial nerve deficits. PSYCHIATRIC: Appropriate mood and affect. Slightly anxious over current condition. Insight and judgment is normal. DIAGNOSTIC DATA Initially in the ER WBC count 25.3 now 17.4, hemoglobin 14.3, hematocrit 44.1, platelet count 259, neutrophil count 93.6, lymphocyte count 1.7. Chemistry: Sodium 144, potassium 4.1, chloride 109, carbon dioxide 24.1, anion gap 11, BUN 26, creatinine 1.34, GFR 39, glucose 145, calcium 8.1. Urine is dark yellow, cloudy, pH is 6, specific gravity 1.029, protein is 30, trace of glucose, negative ketones, trace of occult blood, negative nitrites, bilirubin, urobilinogen is 2, large mount of leukocyte esterase, moderate amount of bacteria. Urine culture is indicated and pending. C. Diff toxin PCR negative. IMAGING Abdomen and pelvic CT shows moderate severity uncomplicated left-sided colitis nonspecific but most likely infectious, C. Diff could possibly be the differential. ASSESSMENT 1. Colitis, non-C. Diff. 2. Lactic acid sepsis. 3. Leukocytosis, probable secondary to UTI. 4. Acute kidney injury. 5. Gastroesophageal reflux disease. 6. Hypertension. PLAN 1. Admit. 2. We will monitor her labs and treat any abnormals as warranted. 3. Vital signs will be q.4 hours. 4. Medications reconciled as warranted. 5. DVT prophylaxis with SCDs. PUD prophylaxis with Protonix. 6. The patient is now on IV Cipro, was given Cipro in the ER along with IV Flagyl. 7. We will consult GI for their expert opinion and any other treatment regimens needed. 8. The patient will have pain management, ECG monitoring, IV access. 9. Monitor labs and replace electrolytes as needed. The patient is FULL CODE, FULL AGGRESSIVE CARE and we will continue to treat and monitor. DICTATED BY: MCKAY Flood MD MTDD
[2017-02-08] MEDS ORDERED: PROPOFOL 200 MG/20 ML AMP IV ONE (11:26)
[2017-02-08] MEDS ORDERED: GLYCOPYRROLATE 0.2 MG/ML VIAL IV ONE (11:26)
--- NOTE | 2017-02-08 11:53 | GIPROC ---
[facility] [address] [facility]. [facility], [address] COLONOSCOPY PROCEDURE REPORT EXAM DATE: 02/08/2017 PATIENT NAME: Adriana Anderson MR #: [id number] BIRTHDATE: 1945 ENDOSCOPIST: Emi Nelson MD ORDER #: [id number] AUTOMOTIVE QUALITY MANAGER: Betty Shelton and Janessa Boyce STATUS: inpatient INDICATIONS: The patient is a 71 yr old female here for a colonoscopy due to abdominal pain and an abnormal CT PROCEDURE PERFORMED: Colonoscopy with biopsy MEDICATIONS: None and Per Anesthesia. PREP QUALITY: The [place] Bowel Prep Score was Right colon 1, Mid colon 2, and Left colon 2. Total = 5. PREP TYPE:GoLytely ESTIMATED BLOOD LOSS: None CONSENT: The patient understands the risks and benefits of the procedure and understands that these risks include, but are not limited to: sedation, allergic reaction, infection, perforation and/or bleeding. Alternative means of evaluation and treatment include, among others: physical exam, x-rays, and/or surgical intervention. The patient elects to proceed with this endoscopic procedure. medical equipment was checked for proper function. Hand hygiene and appropriate measures for infection prevention was taken. After the risks, benefits and alternatives of the procedure were thoroughly explained, Informed consent was verified, confirmed and timeout was successfully executed by the treatment team. A digital exam revealed external hemorrhoids The Pentax [id number] endoscope was introduced through the anus and advanced to the cecum, which was identified by both the appendix and ileocecal valve. The instrument was then slowly withdrawn as the colon was fully examined. COLON FINDINGS: A circumferential patch of abnormal mucosa was found in the descending colon. Consistent with ischemic colitis. A biopsy was performed using cold forceps. Abnormal mucosa was found in the sigmoid colon. Severe ischemic colitis. A biopsy was performed using cold forceps. The colonic mucosa appeared normal in the ascending colon. The colonic mucosa appeared normal in the rectum. Retroflexed views revealed internal hemorrhoids and Retroflexed views revealed small internal hemorrhoids The scope was then completely withdrawn from the patient and the procedure terminated. PROCEDURE WITHDRAWAL TIME:10minutes ADVERSE EVENTS: There were no complications. IMPRESSIONS: 1. Circumferential abnormal mucosa was found in the descending colon; biopsy was performed using cold forceps 2. Abnormal mucosa was found in the sigmoid colon; biopsy was performed using cold forceps 3. The colonic mucosa appeared normal in the ascending colon 4. The colonic mucosa appeared normal in the rectum 5. Retroflexed views revealed internal hemorrhoids 6. Retroflexed views revealed small internal hemorrhoids 7. Revealed external hemorrhoids RECOMMENDATIONS: 1. Await biopsy results. Biopsy results will not be ready for 7-10 days. If you don't hear from us in two weeks, call our office for results. 2. Surgery consult and CTA RECALL: Return 4 weeks Colonoscopy, pending biopsy results Emi Nelson MD eSigned: Emi Nelson MD 02/08/2017 11:53 AM cc: PATIENT NAME: Adriana Anderson MR#: [id number]
--- NOTE | 2017-02-08 12:00 | HHI.PR ---
Subjective Remarks Resting in stretcher getting ready to go for colonoscopy, slightly anxious Alert in room Abdominal bloating this a.m. Patient states good GI per Objective Objective Results - Vital Signs Date Time Temp Pulse Resp B/P Pulse Ox O2 Delivery O2 Flow Rate FiO2 02/08/17 08:00 92 02/08/17 07:59 97.3 91 18 114/67 95 02/08/17 04:00 98.8 100 18 139/79 98 02/08/17 00:00 98.0 91 18 117/80 99 02/07/17 21:00 90 02/07/17 20:00 97.5 90 18 113/71 96 02/07/17 16:00 98.1 93 22 116/64 95 02/07/17 15:40 15 02/07/17 12:00 99.3 94 20 100/59 95 I/O 02/07/17 02/07/17 02/07/17 02/08/17 02/08/17 02/08/17 07:00 15:00 23:00 07:00 15:00 23:00 Intake Total 1063 ml 1458 ml Output Total 600 ml Balance 463 ml 1458 ml Intake Oral 240 ml 840 ml IV Total 823 ml 618 ml Output Urine Total 600 ml # Voids 6 6 # Bowel Movements 4 2 Result Diagram: 02/07/1730 02/07/17 0630 ROS General: Other (fever low grade improving low was seen over past 24 hours 99. 3 , ) GI: Abdominal Pain, Diarrhea, Other (bloating) Neuro/MS: Other (anxiety mild over current condition, obesity) Physical Exam Physical Exam PHYSICAL EXAMINATION GENERAL: This is an obese well-developed, well-nourished female resting on a stretcher on her way for testing. She is alert and awake, HEAD: Normocephalic without any lesion or mass noted. Facial features appear symmetric. OROPHARYNGEAL: Oropharynx without erythema or edema. NECK: Supple. No nuchal rigidity or lymphadenopathy. Trachea midline without deviation. CARDIAC: Regular rhythm, regular rate, S1 and S2 are heard. Murmur none LUNGS: Clear to auscultation bilaterally. no wheeze, No use of accessory muscles on inspiration or expiration. ABDOMEN: Soft, mild generalized tenderness in the mid to lower abdomen Bowel sounds are heard in all four quadrants. Mild guarding. EXTREMITIES: no edema. Pulses equal bilateral. NEUROLOGICAL: Patient mood and affect appropriate, mild anxiety. No focal deficit SKIN:Warm and moist A/P Assessment and Plan Colitis, appreciate GI consult Plan is for colonoscopy this a.m. in room and may walk down to procedure room with her. Good prep [place] to patient. Patient does complain of some bloating this morning, abdomen sore, mild generalized tenderness predominantly in the mid lower areas. We will follow up after testing. Leukocytosis, improving, labs reviewed continue IV hydration at 100 cc an hour, antibiotic therapy Lactic acid sepsis, emperic antibiotics, probable secondary to colitis. Monitor labs, hydration with IV fluids, mild low-grade fever which is improving. Temp 99.3 highest in last 24 hours. Acute kidney injury Hydration continues at 100 cc an hour, probable secondary to diarrhea and dehydration. We'll continue to monitor labs. Currently B UN 28, creatinine 1.05. Essentially unchanged Protein calorie malnutrition, moderate Discussed the need for nutritional intake of good protein sources We'll follow labs and needs. Discussed with patient discussed with Discharge planning in process home soon Discussed with Dr. Rodriguez, patient seen on her behalf Rashida Leger Feb 08, 2017 11:59
--- NOTE | 2017-02-08 13:58 | PD.CONS ---
cc: William Castillo MD [facility] Service General Surgery Consult Requested By Dr. Nelson Reason for Consult Ischemic colitis Primary Care Physician No Primary Care Physician History of Present Illness This is a 71-year-old female who came to the emergency department on Wednesday with sudden severe abdominal pain. The pain is a 10/10, currently 6/10, sharp, radiation to the rest of the abdomen, improvement with pain meds. worse with walking. The patient states she ate a fish dinner at [facility] and had abdominal pain that began about an hour later. She had a normal bowel movement that morning prior to the meal. The patient had several episodes of vomiting and diarrhea at home prior to coming to the emergency department. On arrival to the emergency department the patient was hypotensive. She was given several liters bolus with improvement of blood pressure. A CT abdomen and pelvis showed severe colitis and a GI consultation was obtained. The patient had a colonoscopy this morning. A General Surgery consultation has been requested for evaluation of ischemic colitis. Review of Systems Constitutional: COMPLAINS OF: Change in appetite, DENIES: Weight gain, Weight loss Endocrine: DENIES: Polydipsia, Polyuria, Polyphagia Eyes: DENIES: Diplopia, Eye inflammation Ears, nose, mouth, throat: DENIES: Tinnitus, Hearing loss Respiratory: DENIES: Cough, Snoring Cardiovascular: DENIES: Chest pain, Palpitations Gastrointestinal: COMPLAINS OF: Abdominal pain, Diarrhea, Vomiting Genitourinary: DENIES: Urinary frequency, Urinary incontinence Musculoskeletal: DENIES: Joint pain, Muscle aches Integumentary: DENIES: Abnormal pigmentation Hematologic/lymphatic: DENIES: Bruising Neurologic: DENIES: Abnormal gait Psychiatric: DENIES: Confusion, Mood changes, Depression Past Family Social History Past Medical History GERD High cholesterol Hypertension Past Surgical History Appendectomy Gastroplasty with reversal Reported Medications See chart Allergies: Coded Allergies: No Known Allergies (Unverified , 02/05/17) Active Ordered Medications Current Medications Medications (Trade) Dose Ordered Sig/Amador Route Start Time Stop Time Status Last Admin (NS 1000 ml Inj) 1,000 ml @ 100 mls/hr Q10H IV 02/05/17 23:28 02/08/17 08:38 (NS Flush) 2 ml UNSCH PRN FLUSH 02/05/17 23:30 (NS Flush) 2 ml BID FLUSH 02/06/17 09:00 02/08/17 08:38 (Tylenol) 650 mg Q4H PRN PO 02/05/17 23:30 02/08/17 00:27 (Zofran Inj) 4 mg Q4HR PRN IVP 02/05/17 23:30 02/07/17 19:14 Naloxone HCl 0.4 mg 0.4 mg UNSCH PRN IV 02/05/17 23:30 Ciprofloxacin/ Dextrose 200 ml @ 200 mls/hr Q12H IV 02/06/17 09:00 02/08/17 08:39 (Flagyl 500 Mg Inj) 100 ml @ 100 mls/hr Q8HR IV 02/06/17 06:00 02/08/17 12:19 (Protonix Inj) 40 mg DAILY IV PUSH 02/05/17 23:45 02/08/17 08:39 (Effexor Xr) 150 mg Q12H PO 02/06/17 21:00 02/08/17 08:39 (Prinivil) 20 mg DAILY PO 02/07/17 09:00 02/08/17 08:40 (Microzide) 12.5 mg DAILY PO 02/07/17 09:00 02/08/17 08:39 Family History Noncontributory Social History EtOH-occasionally Smoking-denies Illicit drugs-denies Physical Exam Vital Signs Vital Signs Date Time Temp Pulse Resp B/P Pulse Ox O2 Delivery O2 Flow Rate FiO2 02/08/17 12:29 97.6 91 18 120/68 95 02/08/17 11:59 93 16 108/62 95 02/08/17 11:55 94 16 109/64 96 02/08/17 11:50 98.5 93 16 110/56 94 02/08/17 08:00 92 02/08/17 07:59 97.3 91 18 114/67 95 02/08/17 04:00 98.8 100 18 139/79 98 02/08/17 00:00 98.0 91 18 117/80 99 02/07/17 21:00 90 02/07/17 20:00 97.5 90 18 113/71 96 02/07/17 16:00 98.1 93 22 116/64 95 02/07/17 15:40 15 Physical Exam GENERAL: Obese female resting in bed in no acute distress SKIN: Warm and dry. HEAD: Atraumatic. Normocephalic. EYES: Pupils equal and round. No scleral icterus. No injection or drainage. ENT: No nasal bleeding or discharge. Mucous membranes pink and moist. NECK: Trachea midline. CARDIOVASCULAR: Regular rate and rhythm. RESPIRATORY: No accessory muscle use. Clear to auscultation. Breath sounds equal bilaterally. GASTROINTESTINAL: Abdomen soft and mildly distended; tender with palpation in left lower quadrant. MUSCULOSKELETAL: Extremities without clubbing, cyanosis, or edema. No obvious deformities. NEUROLOGICAL: Awake and alert. No obvious cranial nerve deficits. Motor grossly within normal limits. Five out of 5 muscle strength in the arms and legs. Normal speech. PSYCHIATRIC: Appropriate mood and affect; insight and judgment normal. Laboratory Date/Time Procedure Status Source Growth 02/06/17 01:50 Cryptosporidium Exam - Final Complete Stool Stool NEGATIVE - NO CRYPTOSPORIDIUM ANTIGEN... 02/06/17 01:50 Giardia Antigen (ANGELA) - Final Complete Stool Stool NEGATIVE - NO GIARDIA ANTIGEN DETECTE... 02/05/17 22:10 Urine Culture - Final Complete Urine Clean Catch 50-100,000 CFU/ML MIXED GRAM POSITIVE... 02/05/17 22:10 Aerobic Blood Culture - Preliminary Resulted Blood Peripheral NO GROWTH IN 3 DAYS 02/05/17 22:10 Anaerobic Blood Culture - Preliminary Resulted Blood Peripheral NO GROWTH IN 3 DAYS 02/05/17 21:38 Aerobic Blood Culture Received Blood Peripheral Pending 02/05/17 21:38 Anaerobic Blood Culture Received Blood Peripheral Pending Result Diagram: 02/10/17 0749 02/11/17 0944 Assessment and Plan Assessment and Plan 71-year-old female with ischemic colitis -Obtain CTA -Continue to monitor labs -No signs of peritonitis -Continue abdominal exam was -Plan of care discussed with patient and -Discussed with Dr. Castillo Discussed Condition With Dr. Castillo Mr. and Mrs. Anderson Attending Statement patient seen at bedside abd pain, ischemic colitis, pt stable, wbc stable await CTangio, await colonoscopy results will attempt non operative management with serial abd exams possible or if clinical decline or evidence of perforation Attestation The exam, history, and the medical decision-making described in the above note were completed with the assistance of the mid-level provider. I reviewed and agree with the findings presented. I attest that I had a [id number] encounter with the patient on the same day, and personally performed and documented my assessment and findings in the medical record. Carmela Lambert Feb 08, 2017 13:58 William Castillo MD Feb 14, 2017 06:06
[2017-02-08] MEDS ORDERED: IOHEXOL 350 MG/ML 10 ML VIAL (for RAD DIAG) IV ONE (19:30)
[2017-02-08 19:42] LABS: AUTOMATED NEUTROPHIL # 8.3 TH/MM3 (1.8-7.7); BASOPHIL % 0.3 % (0.0-2.0); EOSINOPHIL # 0.1 TH/MM3 (0-0.4); HEMATOCRIT 35.4 % (35.0-46.0); HEMO FLAGS DIFF FINAL; LYMPH % 5.8 % (9.0-44.0); LYMPHOCYTE # 0.6 TH/MM3 (1.0-4.8); MEAN CELL VOLUME 89.6 FL (80.0-100.0); MEAN CORPUSCULAR HEMOGLOBIN 29.7 PG (27.0-34.0); MEAN CORPUSCULAR HGB CONC 33.2 % (32.0-36.0); MONO % 5.3 % (0.0-8.0); NEUT % 87.6 % (16.0-70.0); PLATELET COUNT 177 TH/MM3 (150-450); RED BLOOD COUNT 3.95 MIL/MM3 (4.00-5.30); RED CELL DISTRIBUTION WIDTH 14.4 % (11.6-17.2); WHITE BLOOD COUNT 9.4 TH/MM3 (4.0-11.0)
--- NOTE | 2017-02-08 20:32 | RADRPT ---
EXAM DATE/TIME: 02/08/2017 19:13 [facility] COMPARISON: CT ABDOMEN & PELVIS W CONTRAST, February 05, 2017, 21:28. INDICATIONS : Thrombosis. IV CONTRAST: 100 cc Omnipaque 350 (iohexol) IV RADIATION DOSE: 19.79 CTDIvol (mGy) MEDICAL HISTORY : Cardiovascular disease. Hypertension. Gastroesophageal reflux disease. SURGICAL HISTORY : Appendectomy. implanted device ENCOUNTER: Initial ACUITY: 1 day PAIN SCALE: 0/10 LOCATION: abdomen TECHNIQUE: Volumetric scanning was performed using a multi-row detector CT scanner. The data was post processed with a variety of visualization algorithms including full volume maximum intensity projection, multi -planar sliding thin slab reformation, curved planar reformation, and surface rendering techniques. Using automated exposure control and adjustment of the mA and/or kV according to patient size, radiat ion dose was kept as low as reasonably achievable to obtain optimal diagnostic quality images. FINDINGS: ABDOMINAL AORTA: There is some atherosclerotic changes of the aorta. No aneurysmal dilatation is demonstrated. There i s tortuosity of the abdominal aorta. The celiac and SMA are patent. The renal arteries are patent didi aterally. However there appears to be some focal mild narrowing at the origin of the left renal arter y. BIFURCATION: Atherosclerotic changes at the bifurcation. RIGHT PELVIS: The right common iliac, internal iliac and external iliac vessels are patent without luminal irregula rity. LEFT PELVIS: The left common iliac, internal iliac and external iliac vessels are patent and without luminal irreg ularity. There are multiple distended loops of small bowel filled with fluid and air. The colon is nondistende d and there is stool in the colon. There is free fluid deep in the pelvis. CONCLUSION: 1. The celiac and SMA vessels are patent. 2. Mild narrowing at the origin of the left renal artery. 3. Atherosclerotic changes and tortuosity of the abdominal aorta. No aneurysmal dilatation. 4. Multiple dilated loops of small bowel filled with fluid and air suggestive of either a diffuse small bowel ileus versus a distal small bowel obstruction. This is new compared to the prior study. Ki Pritchard MD on February 08, 2017 at 20:26 Board Certified Radiologist. This report was verified electronically.
[2017-02-09] VITALS (10 sets, daily range): BP systolic 138–158; BP diastolic 68–94; PULSE 80–94; RESP 18–20; TEMP 97.5–99.2; O2SAT 93–97
[2017-02-09] MEDS: ONDANSETRON HCL 4 MG/2 ML VIAL IVP PRN (07:24)
[2017-02-09] MEDS: metroNIDAZOLE 500 MG INJ 100 ML IV SCH ×3 (07:27→22:46)
[2017-02-09] MEDS: SODIUM CHLOR 0.9% 1000 ML INJ 1,000 ML IV SCH ×2 (08:24→11:34)
[2017-02-09] MEDS: SODIUM CHLORIDE 0.9% FLUSH 5 ML FLUSH FLUSH SCH ×2 (08:24→22:46)
[2017-02-09] MEDS: CIPROFLOXACIN 400 MG PREMIX 200 ML IV SCH ×2 (08:25→22:46)
[2017-02-09] MEDS: LISINOPRIL 20 MG TAB PO SCH (08:25)
[2017-02-09] MEDS: PANTOPRAZOLE SODIUM 40 MG VIAL IV PUSH SCH (08:25)
[2017-02-09] MEDS: HYDROCHLOROTHIAZIDE 12.5 MG CAP PO SCH (08:26)
[2017-02-09] MEDS: VENLAFAXINE HCL XR 75 MG CAP PO SCH ×2 (08:26→22:44)
[2017-02-09 09:19] LABS: HEMATOCRIT 37.8 % (35.0-46.0); MEAN CELL VOLUME 89.5 FL (80.0-100.0); MEAN CORPUSCULAR HEMOGLOBIN 29.4 PG (27.0-34.0); MEAN CORPUSCULAR HGB CONC 32.9 % (32.0-36.0); PLATELET COUNT 239 TH/MM3 (150-450); RED BLOOD COUNT 4.22 MIL/MM3 (4.00-5.30); RED CELL DISTRIBUTION WIDTH 14.7 % (11.6-17.2); REVIEW FLAG FINAL; WHITE BLOOD COUNT 8.4 TH/MM3 (4.0-11.0)
[2017-02-09 09:45] LABS: BICARBONATE 28.4 MEQ/L (21.0-32.0); POTASSIUM 3.5 MEQ/L (3.5-5.1)
--- NOTE | 2017-02-09 10:56 | HHI.PR ---
Subjective History of Present Illness feels little better slightly bloated No N/V tolerating clear liquids no BM . + slight Flatus scant blood on the wipes early on No fever or chills No CP or SOB offers no other c/o is at bedside Vitals/Results Intake & Output 02/08/17 02/08/17 02/09/17 15:00 23:00 07:00 Intake Total 440 ml 1743 ml Balance 440 ml 1743 ml Intake Oral 240 ml 720 ml IV Total 200 ml 1023 ml # Voids 1 2 1 # Bowel Movements 1 Vital Signs Vital Signs Date Time Temp Pulse Resp B/P Pulse Ox O2 Delivery O2 Flow Rate FiO2 02/09/17 08:00 99.2 80 19 152/94 95 02/09/17 05:13 93 02/09/17 04:13 98.1 92 20 143/79 95 02/09/17 00:58 98.1 88 18 139/68 93 02/08/17 23:34 19 02/08/17 20:27 97.7 93 20 142/78 92 02/08/17 20:25 94 21 02/08/17 16:03 98.8 88 18 110/61 94 02/08/17 15:00 88 02/08/17 12:29 97.6 91 18 120/68 95 02/08/17 11:59 93 16 108/62 95 02/08/17 11:55 94 16 109/64 96 02/08/17 11:50 98.5 93 16 110/56 94 CBC/BMP: 02/09/17 0815 02/09/17 0815 Lab Results Laboratory Tests Test 02/08/17 02/08/17 02/09/17 18:35 18:36 08:15 Lactic Acid Level 0.7 mmol/L White Blood Count 9.4 TH/MM3 8.4 TH/MM3 Red Blood Count 3.95 MIL/MM3 4.22 MIL/MM3 Hemoglobin 11.7 GM/DL 12.4 GM/DL Hematocrit 35.4 % 37.8 % Mean Corpuscular Volume 89.6 FL 89.5 FL Mean Corpuscular Hemoglobin 29.7 PG 29.4 PG Mean Corpuscular Hemoglobin 33.2 % 32.9 % Concent Red Cell Distribution Width 14.4 % 14.7 % Platelet Count 177 TH/MM3 239 TH/MM3 Mean Platelet Volume 7.6 FL 7.7 FL Neutrophils (%) (Auto) 87.6 % Lymphocytes (%) (Auto) 5.8 % Monocytes (%) (Auto) 5.3 % Eosinophils (%) (Auto) 1.0 % Basophils (%) (Auto) 0.3 % Neutrophils # (Auto) 8.3 TH/MM3 Lymphocytes # (Auto) 0.6 TH/MM3 Monocytes # (Auto) 0.5 TH/MM3 Eosinophils # (Auto) 0.1 TH/MM3 Basophils # (Auto) 0.0 TH/MM3 CBC Comment DIFF FINAL Differential Comment Sodium Level 143 MEQ/L Potassium Level 3.5 MEQ/L Chloride Level 105 MEQ/L Carbon Dioxide Level 28.4 MEQ/L Anion Gap 10 MEQ/L Blood Urea Nitrogen 10 MG/DL Creatinine 0.84 MG/DL Estimat Glomerular Filtration 67 ML/MIN Rate Random Glucose 100 MG/DL Calcium Level 8.1 MG/DL Physical Exam General General Appearance: No Acute Distress, Comfortable, Obese Eyes Eye Exam: Pupils Equal, Sclera White, Extraocular Movement Intact Ears & Nose Ears & Nose Exam: Nasal Mucosa [place] Throat Throat Exam: Oral Mucosa [place] & Moist Neck Neck Exam: Neck Supple, Trachea Midline Pulmonary Resp Exam: Clear Bilaterally, Breath Sounds Equal Cardiology CV Exam: Regular, Normal Sinus Rhythm Gastrointestinal/Abdomen GI Exam: Soft GI Remarks slightly distended , Hypoactive BS , mild tenderness , no guarding or rebound tenderness Integumentary Skin Exam: Warm, Dry Extremeties Extremities Exam: No Edema, Pedal Pulses Palpable Neurologic Neuro Exam: Alert, Awake, Oriented, Speech Clear, Moving All Extremities VTE Prophylaxis VTE Prophylaxis Device: SCDs PUD Prophylasis PUD Prophylaxis: Protonix Assessment/Plan Assessment/Plan Acute Ischemic Colitis, appreciate GI consult s/p colonoscopy 02/08 findings noted IVF IV abx empirically Gen Surgery was consulted CTA abd , patent Celiac A & SMA dilated small bowel Ileus vs obs cont clear liquid diet Leukocytosis / early sepsis On admission d/t above lactic acidosis improving, labs reviewed continue IV hydration at 100 cc an hour, cont Antibiotic therapy Acute Renal failure ,d/t above also Improving cont Hydration continues at 100 cc an hour, Monitor labs. Protein calorie malnutrition, moderate Discussed the need for nutritional intake of good protein sources Hypertension stable cont current BP meds GI protection SCD for DVT prophylaxis PT eval ss for d/c planning d/w PT/ discussed with at bedside in detail am labs will f/u Eliana Rodriguez MD Feb 09, 2017 10:56
--- NOTE | 2017-02-09 13:17 | HHI.PR ---
Subjective Subjective Notes Resting in bed Reports liquid stool Objective Vitals/I&O Vital Signs Date Time Temp Pulse Resp B/P Pulse Ox O2 Delivery O2 Flow Rate FiO2 02/09/17 12:00 97.5 83 18 138/72 97 02/08/17 20:25 21 02/05/17 22:42 Room Air Labs Laboratory Tests Test 02/08/17 02/08/17 02/09/17 18:35 18:36 08:15 Lactic Acid Level 0.7 White Blood Count 9.4 8.4 Red Blood Count 3.95 4.22 Hemoglobin 11.7 12.4 Hematocrit 35.4 37.8 Mean Corpuscular Volume 89.6 89.5 Mean Corpuscular Hemoglobin 29.7 29.4 Mean Corpuscular Hemoglobin 33.2 32.9 Concent Red Cell Distribution Width 14.4 14.7 Platelet Count 177 239 Mean Platelet Volume 7.6 7.7 Neutrophils (%) (Auto) 87.6 Lymphocytes (%) (Auto) 5.8 Monocytes (%) (Auto) 5.3 Eosinophils (%) (Auto) 1.0 Basophils (%) (Auto) 0.3 Neutrophils # (Auto) 8.3 Lymphocytes # (Auto) 0.6 Monocytes # (Auto) 0.5 Eosinophils # (Auto) 0.1 Basophils # (Auto) 0.0 CBC Comment DIFF FINAL Differential Comment Sodium Level 143 Potassium Level 3.5 Chloride Level 105 Carbon Dioxide Level 28.4 Anion Gap 10 Blood Urea Nitrogen 10 Creatinine 0.84 Estimat Glomerular Filtration 67 Rate Random Glucose 100 Calcium Level 8.1 Date/Time Procedure Status Source Growth 02/06/17 01:50 Cryptosporidium Exam - Final Complete Stool Stool NEGATIVE - NO CRYPTOSPORIDIUM ANTIGEN... 02/06/17 01:50 Giardia Antigen (ANGELA) - Final Complete Stool Stool NEGATIVE - NO GIARDIA ANTIGEN DETECTE... 02/05/17 22:10 Urine Culture - Final Complete Urine Clean Catch 50-100,000 CFU/ML MIXED GRAM POSITIVE... 02/05/17 22:10 Aerobic Blood Culture - Preliminary Resulted Blood Peripheral NO GROWTH IN 4 DAYS 02/05/17 22:10 Anaerobic Blood Culture - Preliminary Resulted Blood Peripheral NO GROWTH IN 4 DAYS 02/05/17 21:38 Aerobic Blood Culture Received Blood Peripheral Pending 02/05/17 21:38 Anaerobic Blood Culture Received Blood Peripheral Pending Cardiovascular: Regular Lungs: Clear Abdomen: Non-distended, Other (tender with palpation on LLQ ) Extremities: No edema A/P Assessment and Plan 71 year old female ? ischemic colitis; with severe ileus -Clear liquids today -OOB and mobilize some -Continue IVF -CTA reviewed with Dr. Castillo -Continue non operative treatment Attending Statement CT reviewed, clinical improvement no acute abd at this time clear diet serial abd exams. discussed with patient and family at bedside Attestation The exam, history, and the medical decision-making described in the above note were completed with the assistance of the mid-level provider. I reviewed and agree with the findings presented. I attest that I had a [id number] encounter with the patient on the same day, and personally performed and documented my assessment and findings in the medical record. Carmela Lambert Feb 09, 2017 13:17 William Castillo MD Feb 14, 2017 06:09
[2017-02-09] MEDS: ACETAMINOPHEN 325 MG TAB PO PRN (14:07)
--- NOTE | 2017-02-09 14:22 | HHI.GIFU ---
Subjective Remarks Still having lower abdominal tenderness and cramping, had loose stools, some bright red blood when she wipes from hemorrhoids. (Jessica Astorga) Objective Vitals I&O Vital Signs Date Time Temp Pulse Resp B/P Pulse Ox O2 Delivery O2 Flow Rate FiO2 02/09/17 12:00 97.5 83 18 138/72 97 02/09/17 08:00 99.2 80 19 152/94 95 02/09/17 07:00 83 02/09/17 05:13 93 02/09/17 04:13 98.1 92 20 143/79 95 02/09/17 00:58 98.1 88 18 139/68 93 02/08/17 23:34 19 02/08/17 20:27 97.7 93 20 142/78 92 02/08/17 20:25 94 21 02/08/17 16:03 98.8 88 18 110/61 94 02/08/17 15:00 88 I/O 02/08/17 02/08/17 02/08/17 02/09/17 02/09/17 02/09/17 07:00 15:00 23:00 07:00 15:00 23:00 Intake Total 440 ml 1743 ml Balance 440 ml 1743 ml Intake Oral 240 ml 720 ml IV Total 200 ml 1023 ml # Voids 6 1 2 1 # Bowel Movements 2 1 Laboratory Laboratory Tests Test 02/08/17 02/08/17 02/09/17 18:35 18:36 08:15 Lactic Acid Level 0.7 White Blood Count 9.4 8.4 Red Blood Count 3.95 4.22 Hemoglobin 11.7 12.4 Hematocrit 35.4 37.8 Mean Corpuscular Volume 89.6 89.5 Mean Corpuscular Hemoglobin 29.7 29.4 Mean Corpuscular Hemoglobin 33.2 32.9 Concent Red Cell Distribution Width 14.4 14.7 Platelet Count 177 239 Mean Platelet Volume 7.6 7.7 Neutrophils (%) (Auto) 87.6 Lymphocytes (%) (Auto) 5.8 Monocytes (%) (Auto) 5.3 Eosinophils (%) (Auto) 1.0 Basophils (%) (Auto) 0.3 Neutrophils # (Auto) 8.3 Lymphocytes # (Auto) 0.6 Monocytes # (Auto) 0.5 Eosinophils # (Auto) 0.1 Basophils # (Auto) 0.0 CBC Comment DIFF FINAL Differential Comment Sodium Level 143 Potassium Level 3.5 Chloride Level 105 Carbon Dioxide Level 28.4 Anion Gap 10 Blood Urea Nitrogen 10 Creatinine 0.84 Estimat Glomerular Filtration 67 Rate Random Glucose 100 Calcium Level 8.1 Date/Time Procedure Status Source Growth 02/06/17 01:50 Cryptosporidium Exam - Final Complete Stool Stool NEGATIVE - NO CRYPTOSPORIDIUM ANTIGEN... 02/06/17 01:50 Giardia Antigen (ANGELA) - Final Complete Stool Stool NEGATIVE - NO GIARDIA ANTIGEN DETECTE... 02/05/17 22:10 Urine Culture - Final Complete Urine Clean Catch 50-100,000 CFU/ML MIXED GRAM POSITIVE... 02/05/17 22:10 Aerobic Blood Culture - Preliminary Resulted Blood Peripheral NO GROWTH IN 4 DAYS 02/05/17 22:10 Anaerobic Blood Culture - Preliminary Resulted Blood Peripheral NO GROWTH IN 4 DAYS 02/05/17 21:38 Aerobic Blood Culture Received Blood Peripheral Pending 02/05/17 21:38 Anaerobic Blood Culture Received Blood Peripheral Pending Imaging Last Impressions Abdomen/Pelvis CT 02/08/17 0000 Signed Impressions: Service Date/Time: Wednesday, February 08, 2017 19:13 - CONCLUSION: 1. The celiac and SMA vessels are patent. 2. Mild narrowing at the origin of the left renal artery. 3. Atherosclerotic changes and tortuosity of the abdominal aorta. No aneurysmal dilatation. 4. Multiple dilated loops of small bowel filled with fluid and air suggestive of either a diffuse small bowel ileus versus a distal small bowel obstruction. This is new compared to the prior study. Ki Pritchard MD Physical Exam HEENT: PERRLA; normocephalic; atraumatic; no jaundice. NECK: Neck is supple, no JVD, no lymphadenopathy. CHEST: CTA CARDIAC: RRR with no murmur gallop or rubs. ABDOMEN: Soft, obese, mild tenderness on palpation of lower abdomen; no hepatosplenomegaly; bowel sounds are present x 4 quadrants. EXTREMITIES: No clubbing, cyanosis, or edema. SKIN: Normal; no rash; no jaundice. FUND CONTROLLER: No focal deficits; A&O x3. (Jessica Astorga) Assessment and Plan Plan ASSESSMENT: - Acute colitis- Sudden onset of lower abdominal pain described as severe and cramping, associated with multiple episodes of vomiting and watery diarrhea. States "things were coming both ends, non stop, went on for hours". She denies hematemesis, hematochezia or melena. Reports fever and chills. She denies recent sick contact, recent abx or travel. She had fish at [employer] about an hour prior to the onset of her symptoms. No previous history of this. Last colonoscopy was [address] 02/05/17--> Moderate severity, uncomplicated long segment left-sided colitis, nonspecific but most likely infectious. C. difficile colitis would be in the differential. Stools were negative for C-diff, stool cx pending. AST and Alk Phos now improved. Hepatitis panel pending. On Cipro and Flagyl - Chronic GERD- under control with Omeprazole - Leukocytosis- improving. Secondary to above, possible UTI. WBC 11.8, Neut 90.1 %. - TD- likely to dehydration 02/09/17 --Still having lower abdominal tenderness and cramping, some bright red blood when she wipes likely from hemorrhoids, tolerated clear liquid diet with no nausea. Colonoscopy done 02/08/17 showed severe colitis, likely ischemic, Bx pending, CTA was done shows ileus. Hepatitis profile and C-Diff were negative --->Abdomen/Pelvis CT Wednesday, February 08, 2017 19:13 - 1. The celiac and SMA vessels are patent. 2. Mild narrowing at the origin of the left renal artery. 3. Atherosclerotic changes and tortuosity of the abdominal aorta. No aneurysmal dilatation. 4. Multiple dilated loops of small bowel filled with fluid and air suggestive of either a diffuse small bowel ileus versus a distal small bowel obstruction. This is new compared to the prior study. PLAN: - Cont. Cipro/Flagyl - F/U on Bx report - Continue clear liquid diet - Abdominal xray in am -AM labs - Supportive care - Further recommendations to follow based on results of above. Patient seen and examined by Dr. Nelson and myself and this note is written on his behalf. (Jessica Astorga) Physician Comments Seen and examined with [employer] OPERATOR, doing better. Likely ischemic colitis. CTA no major occlusions. Biopsies non- specific. Advance diet as tolerated. (Emi Nelson MD) Jessica Astorga Feb 09, 2017 14:22 Emi Nelson MD Feb 09, 2017 17:53
[2017-02-09] MEDS: ACETAMINOPHEN/HYDROcodone 325 MG/5 MG TAB PO PRN (18:07)
[2017-02-10] VITALS (10 sets, daily range): BP systolic 127–161; BP diastolic 65–86; PULSE 89–99; RESP 16–18; TEMP 97.4–99.7; O2SAT 94–97
[2017-02-10] MEDS: ACETAMINOPHEN/HYDROcodone 325 MG/5 MG TAB PO PRN ×2 (00:06→21:13)
[2017-02-10] MEDS: SODIUM CHLOR 0.9% 1000 ML INJ 1,000 ML IV SCH ×2 (03:28→21:11)
[2017-02-10] MEDS: metroNIDAZOLE 500 MG INJ 100 ML IV SCH ×3 (06:43→21:53)
[2017-02-10 08:37] LABS: MEAN CELL VOLUME 88.9 FL (80.0-100.0); MEAN CORPUSCULAR HEMOGLOBIN 29.3 PG (27.0-34.0); MEAN CORPUSCULAR HGB CONC 32.9 % (32.0-36.0); PLATELET COUNT 302 TH/MM3 (150-450); RED BLOOD COUNT 4.39 MIL/MM3 (4.00-5.30); RED CELL DISTRIBUTION WIDTH 14.2 % (11.6-17.2); REVIEW FLAG FINAL; WHITE BLOOD COUNT 11.8 TH/MM3 (4.0-11.0)
[2017-02-10 08:58] LABS: BICARBONATE 27.6 MEQ/L (21.0-32.0)
[2017-02-10] MEDS: SODIUM CHLORIDE 0.9% FLUSH 5 ML FLUSH FLUSH SCH ×2 (09:00→21:00)
[2017-02-10] MEDS: VENLAFAXINE HCL XR 75 MG CAP PO SCH ×2 (09:00→21:10)
[2017-02-10 09:04] LABS: POTASSIUM 2.9 MEQ/L (3.5-5.1)
--- NOTE | 2017-02-10 09:38 | RADRPT ---
EXAM DATE/TIME: 02/10/2017 09:13 [facility] COMPARISON: No previous studies available for comparison. INDICATIONS : Abdominal pain for MEDICAL HISTORY : Cardiovascular disease. Hypertension. Gastroesophageal reflux disease. SURGICAL HISTORY : Appendectomy. ENCOUNTER: Subsequent ACUITY: 4 - 6 days PAIN SCORE: 5/10 LOCATION: Abdomen, all quadrants. FINDINGS: Supine view of the abdomen was performed. Surgical clips are seen in the left upper quadrant. Air se en within mildly prominent small bowel in the left midabdomen. Air seen within a nondistended colon. Free air is not seen. There is numerous calcifications in the pelvis likely related to phleboliths. T here is severe degenerative change in the lumbar spine. There is a right hip prosthesis in place. CONCLUSION: Nonspecific bowel gas pattern. Kavon Carson MD on February 10, 2017 at 9:30 Board Certified Radiologist. This report was verified electronically.
--- NOTE | 2017-02-10 09:43 | HHI.PR ---
Subjective Subjective Notes Up to chair by the window reading newspaper "I feel so much better today!" Objective Vitals/I&O Vital Signs Date Time Temp Pulse Resp B/P Pulse Ox O2 Delivery O2 Flow Rate FiO2 02/10/17 08:00 98.8 94 17 152/86 95 02/09/17 18:35 21 Labs Laboratory Tests Test 02/10/17 07:49 White Blood Count 11.8 Red Blood Count 4.39 Hemoglobin 12.8 Hematocrit 39.0 Mean Corpuscular Volume 88.9 Mean Corpuscular Hemoglobin 29.3 Mean Corpuscular Hemoglobin 32.9 Concent Red Cell Distribution Width 14.2 Platelet Count 302 Mean Platelet Volume 7.1 Date/Time Procedure Status Source Growth 02/06/17 01:50 Cryptosporidium Exam - Final Complete Stool Stool NEGATIVE - NO CRYPTOSPORIDIUM ANTIGEN... 02/06/17 01:50 Giardia Antigen (ANGELA) - Final Complete Stool Stool NEGATIVE - NO GIARDIA ANTIGEN DETECTE... 02/05/17 22:10 Urine Culture - Final Complete Urine Clean Catch 50-100,000 CFU/ML MIXED GRAM POSITIVE... 02/05/17 22:10 Aerobic Blood Culture - Preliminary Resulted Blood Peripheral NO GROWTH IN 4 DAYS 02/05/17 22:10 Anaerobic Blood Culture - Preliminary Resulted Blood Peripheral NO GROWTH IN 4 DAYS 02/05/17 21:38 Aerobic Blood Culture Received Blood Peripheral Pending 02/05/17 21:38 Anaerobic Blood Culture Received Blood Peripheral Pending Cardiovascular: Regular Lungs: Clear Abdomen: Non-distended, Non-tender Extremities: No edema A/P Assessment and Plan 71 year old female ? ischemic colitis; with severe ileus -Advance to full liquids today and advance as tolerated -OOB and mobilize -CTA reviewed with Dr. Castillo -Continue non operative treatment Attending Statement vitals clinically normal pt seen at bedside advance diet Attestation The exam, history, and the medical decision-making described in the above note were completed with the assistance of the mid-level provider. I reviewed and agree with the findings presented. I attest that I had a [id number] encounter with the patient on the same day, and personally performed and documented my assessment and findings in the medical record. Carmela Lambert Feb 10, 2017 09:43 William Castillo MD Feb 14, 2017 06:25
[2017-02-10] MEDS: HYDROCHLOROTHIAZIDE 12.5 MG CAP PO SCH (10:58)
[2017-02-10] MEDS: LISINOPRIL 20 MG TAB PO SCH (11:05)
[2017-02-10] MEDS: PANTOPRAZOLE SODIUM 40 MG VIAL IV PUSH SCH (11:07)
--- NOTE | 2017-02-10 12:00 | HHI.GIFU ---
Subjective Remarks Resting in bed. States she is feeling much better. Abdominal distention has improved per patient. A couple of loose stools today, although she reports that these are starting to be more formed. No n/v, abdominal pain. No bleeding. tolerating full liquids. (Sarah Lima) Objective Vitals I&O Vital Signs Date Time Temp Pulse Resp B/P Pulse Ox O2 Delivery O2 Flow Rate FiO2 02/10/17 08:00 98.8 94 17 152/86 95 02/10/17 04:28 98.2 90 18 129/69 94 02/10/17 00:45 19 02/10/17 00:41 99 02/10/17 00:29 97.4 97 18 143/78 94 02/09/17 21:22 98.4 94 20 158/87 95 02/09/17 18:35 96 21 02/09/17 15:42 98.5 93 18 156/87 96 02/09/17 15:00 83 02/09/17 12:00 97.5 83 18 138/72 97 I/O 02/09/17 02/09/17 02/09/17 02/10/17 02/10/17 02/10/17 07:00 15:00 23:00 07:00 15:00 23:00 Intake Total 650 ml Balance 650 ml Intake Oral 650 ml # Voids 1 3 1 # Bowel Movements 1 1 Laboratory Laboratory Tests Test 02/10/17 07:49 White Blood Count 11.8 Red Blood Count 4.39 Hemoglobin 12.8 Hematocrit 39.0 Mean Corpuscular Volume 88.9 Mean Corpuscular Hemoglobin 29.3 Mean Corpuscular Hemoglobin 32.9 Concent Red Cell Distribution Width 14.2 Platelet Count 302 Mean Platelet Volume 7.1 Sodium Level 141 Potassium Level 2.9 Chloride Level 101 Carbon Dioxide Level 27.6 Anion Gap 12 Blood Urea Nitrogen 8 Creatinine 0.75 Estimat Glomerular Filtration 76 Rate Random Glucose 91 Calcium Level 8.3 Date/Time Procedure Status Source Growth 02/06/17 01:50 Cryptosporidium Exam - Final Complete Stool Stool NEGATIVE - NO CRYPTOSPORIDIUM ANTIGEN... 02/06/17 01:50 Giardia Antigen (ANGELA) - Final Complete Stool Stool NEGATIVE - NO GIARDIA ANTIGEN DETECTE... 02/05/17 22:10 Urine Culture - Final Complete Urine Clean Catch 50-100,000 CFU/ML MIXED GRAM POSITIVE... 02/05/17 22:10 Aerobic Blood Culture - Final Complete Blood Peripheral NO GROWTH IN 5 DAYS 02/05/17 22:10 Anaerobic Blood Culture - Final Complete Blood Peripheral NO GROWTH IN 5 DAYS 02/05/17 21:38 Aerobic Blood Culture Received Blood Peripheral Pending 02/05/17 21:38 Anaerobic Blood Culture Received Blood Peripheral Pending Imaging Last Impressions Abdomen X-Ray 02/10/17 0700 Signed Impressions: Service Date/Time: Friday, February 10, 2017 09:13 - CONCLUSION: Nonspecific bowel gas pattern. Kavon Carson MD Abdomen/Pelvis CT 02/08/17 0000 Signed Impressions: Service Date/Time: Wednesday, February 08, 2017 19:13 - CONCLUSION: 1. The celiac and SMA vessels are patent. 2. Mild narrowing at the origin of the left renal artery. 3. Atherosclerotic changes and tortuosity of the abdominal aorta. No aneurysmal dilatation. 4. Multiple dilated loops of small bowel filled with fluid and air suggestive of either a diffuse small bowel ileus versus a distal small bowel obstruction. This is new compared to the prior study. Ki Pritchard MD Physical Exam HEENT: Normocephalic; atraumatic; no jaundice. NECK: Neck is supple, no JVD, no lymphadenopathy. CHEST: CTA CARDIAC: RRR with no murmur gallop or rubs. ABDOMEN: Soft, obese, nontender; no hepatosplenomegaly; bowel sounds are present x 4 quadrants. EXTREMITIES: No clubbing, cyanosis, or edema. SKIN: Normal; no rash; no jaundice. KIER PLEATER: No focal deficits; A&O x3. (Sarah Lima [facility]) Assessment and Plan Plan ASSESSMENT: - Acute colitis, likely ischemic. CT (02/05/17)---> Moderate severity, uncomplicated long segment left sided colitis, nonspecific but most likely infectious. C Difficile colitis would be in the differential. CDiff negative. Cryptosporidium negative, giardia negative. Colonoscopy (02/08/17)---> Circumferential abnormal mucosa was found in the descending colon; biopsy was performed using cold forceps, abnormal mucosa was found in the sigmoid colon; biopsy was performed using cold forceps, colonic mucosa appeared normal in the ascending colon, colonic mucosa appeared normal in the rectum, Retroflexed views revealed small internal hemorrhoids, external hemorrhoids. Pathology transverse colon focal acute colitis with non-specific features and melanosis coli, sigmoid colon biopsy with fibrinopurulent exudate, consistent with ulcer base, no viable mucosa present for evaluation. CTA (02/08/17)----> 1. The celiac and SMA vessels are patent. 2. Mild narrowing at the origin of the left renal artery. 3. Atherosclerotic changes and tortuosity of the abdominal aorta. No aneurysmal dilatation. 4. Multiple dilated loops of small bowel filled with fluid and air suggestive of either a diffuse small bowel ileus versus a distal small bowel obstruction. This is new compared to the prior study. GS following. Clinically improved. Tolerating full liquids, distention improved, 2 loose stools- but states starting to be more formed. No bleeding. Cipro, Flagyl. - Ileus. IMPROVED. Tolerating full liquids. - Elevated LFTs. Hepatitis panel negative. Improved. - Chronic GERD. PPI - Leukocytosis. Improved. - TD, likely to dehydration. Improved PLAN: - Full liquids - PPI - Cipro/Flagyl - Supportive care - Rpt colonoscopy in 4 weeks - Further recommendations to follow based on results of above - Pt seen and examined by Dr. Nelson and myself and this note is written on his behalf Patient seen and examined by Dr. Nelson and myself and this note is written on his behalf. (Sarah Lima) Physician Comments Seen and examined with MCKAY, doing better. Tolerating diet, advance diet as tolerated. Gi will sign off, please have fu with gi clinic upon dc in 02 weeks. Thank you (Emi Nelson MD) Sarah Lima Feb 10, 2017 12:00 Emi Nelson MD Feb 10, 2017 20:34
[2017-02-10] MEDS: CIPROFLOXACIN 400 MG PREMIX 200 ML IV SCH ×2 (13:01→21:12)
--- NOTE | 2017-02-10 14:38 | HHI.PR ---
Subjective Subjective Remarks resting in bed, alert abd still with mild soreness. Up ambulating today no SOB (Rashida Leger) Review of Systems Constitutional Constitutional: Weakness (generalized,) Constitutional Remarks 10 Point ROS done, positives include some generalized , Appetite good, no SOB at rest. Other systems negative or unremarkable 1 diarrhea stool this a.m. around 11:00 otherwise negative (Rashida Leger) GI/Abdomen GI/Abdominal Exam: Diarrhea (Rashida Leger) Musculoskeletal MS: Weakness (generalized) (Rashida Leger) Integumentary Skin: Wounds (Rashida Leger) Psychiatric Psychiatric: Normal Mood, Anxiety (mild) (Rashida Leger) Vitals/Results Intake & Output 02/09/17 02/09/17 02/10/17 15:00 23:00 07:00 Intake Total 650 ml Balance 650 ml Intake Oral 650 ml # Voids 3 1 # Bowel Movements 1 1 Vital Signs Vital Signs Date Time Temp Pulse Resp B/P Pulse Ox O2 Delivery O2 Flow Rate FiO2 02/10/17 12:32 98.3 90 16 127/65 96 02/10/17 08:00 98.8 94 17 152/86 95 02/10/17 04:28 98.2 90 18 129/69 94 02/10/17 00:45 19 02/10/17 00:41 99 02/10/17 00:29 97.4 97 18 143/78 94 02/09/17 21:22 98.4 94 20 158/87 95 02/09/17 18:35 96 21 02/09/17 15:42 98.5 93 18 156/87 96 02/09/17 15:00 83 (Rashida Leger) CBC/BMP: 02/10/17 0749 02/10/17 0749 Lab Results Laboratory Tests Test 02/10/17 07:49 White Blood Count 11.8 TH/MM3 Red Blood Count 4.39 MIL/MM3 Hemoglobin 12.8 GM/DL Hematocrit 39.0 % Mean Corpuscular Volume 88.9 FL Mean Corpuscular Hemoglobin 29.3 PG Mean Corpuscular Hemoglobin 32.9 % Concent Red Cell Distribution Width 14.2 % Platelet Count 302 TH/MM3 Mean Platelet Volume 7.1 FL Sodium Level 141 MEQ/L Potassium Level 2.9 MEQ/L Chloride Level 101 MEQ/L Carbon Dioxide Level 27.6 MEQ/L Anion Gap 12 MEQ/L Blood Urea Nitrogen 8 MG/DL Creatinine 0.75 MG/DL Estimat Glomerular Filtration 76 ML/MIN Rate Random Glucose 91 MG/DL Calcium Level 8.3 MG/DL Current Medications Active Medications Acetaminophen/ Hydrocodone Bitart ([place] 5-325 Mg) 1 tab Q6H PRN PO Last administered on 02/10/17 00:06; Admin Dose 1 TAB; Start 02/09/17 at 17:45 ( Rashida LegerP) Physical Exam General General Appearance: No Acute Distress, Comfortable, Obese (Rashida Leger [employer]) Eyes Eye Exam: Pupils Equal, Sclera White, Extraocular Movement Intact (Rashida Leger [employer]) Ears & Nose Ears & Nose Exam: Nasal Mucosa [place] (Rashida Leger [employer]) Throat Throat Exam: Oral Mucosa [place] & Moist (Rashida Leger [employer]) Neck Neck Exam: Neck Supple, Trachea Midline (Rashida Leger [employer]) Pulmonary Resp Exam: Clear Bilaterally, Breath Sounds Equal (Rashida Leger [employer]) Cardiology CV Exam: Regular, Normal Sinus Rhythm (Rashida Leger. [employer]) Gastrointestinal/Abdomen GI Exam: Soft, Bowel Sounds Present (diarrhea stool 1 today), Non-Distended ( improving) (Rashida Leger. [employer]) Musculoskeletal MS Exam: Joints Intact, Good Strength (Rashida LegerP) Integumentary Skin Exam: Warm, Dry (Rashida LegerP) Extremeties Extremities Exam: No Edema, Pedal Pulses Palpable (Rashida Leger [employer]) Neurologic Neuro Exam: Alert, Awake, Oriented, Speech Clear, Moving All Extremities ( Rashida Leger. [employer]ER) VTE Prophylaxis VTE Prophylaxis Device: SCDs (Rashida Leger. [employer]) PUD Prophylasis PUD Prophylaxis: Protonix (Rashida LegerP) Assessment/Plan Assessment/Plan Acute Ischemic Colitis, appreciate GI consult, continue IV Flagyl s/p colonoscopy 02/08 findings noted IVF IV abx empirically Gen Surgery was consulted dilated small bowel Ileus vs obs, colitis found, x-rays negative today Advance diet today, continue non-operative treatment Leukocytosis / trending down lactic acidosis resolved improving, labs reviewed continue IV hydration at 100 cc an hour, until the a.m. cont Antibiotic therapy Acute Renal failure ,d/t above also Improving cont Hydration continues at 100 cc an hour, Monitor labs. Protein calorie malnutrition, moderate Discussed the need for nutritional intake of good protein sources, patient understands Hypertension stable cont current BP meds SCD for DVT prophylaxis PT eval , up with walker, short distance tolerated well ss for d/c planning, we'll look at discharge in the morning. d/w PT/ discussed with at bedside in detail (Rashida Leger) Assessment/Plan pt is seen & examined d/w PT & her at bedside tolerating Full liquid diet / No abd pain +ve flatus / small BM d/w Rashida rebolledo w above advance diet possible d/c home in am, will f/u (Eliana Rodriguez MD) Rashida Leger Feb 10, 2017 14:38 Eliana Rodriguez MD Feb 10, 2017 15:20
[2017-02-10] MEDS ORDERED: POTASSIUM CHLOR 10 MEQ PREMIX 100 ML IV ONE (15:30)
[2017-02-10] MEDS ORDERED: POTASSIUM CHLORIDE 8 MEQ CONTROLLED RELEASE TAB PO ONE ×2 (15:30→20:00)
[2017-02-11] VITALS: BP 150/79; PULSE 84; RESP 20; TEMP 99.2; O2SAT 93
[2017-02-11 04:00] VITALS: BP 131/80; PULSE 87; RESP 20; TEMP 99; O2SAT 94
[2017-02-11] MEDS: metroNIDAZOLE 500 MG INJ 100 ML IV SCH ×2 (05:39→14:00)
[2017-02-11 08:00] VITALS: BP 145/89; PULSE 83; RESP 18; TEMP 98.1; O2SAT 96
[2017-02-11] MEDS: VENLAFAXINE HCL XR 75 MG CAP PO SCH (09:00)
[2017-02-11] MEDS: CIPROFLOXACIN 400 MG PREMIX 200 ML IV SCH (10:23)
[2017-02-11] MEDS: LISINOPRIL 20 MG TAB PO SCH (10:25)
[2017-02-11] MEDS: HYDROCHLOROTHIAZIDE 12.5 MG CAP PO SCH (10:25)
[2017-02-11] MEDS: PANTOPRAZOLE SODIUM 40 MG VIAL IV PUSH SCH (10:25)
--- NOTE | 2017-02-11 10:35 | HHI.PR ---
Subjective Subjective Notes Resting in bed Has walked in hallways this morning at bedside Objective Vitals/I&O Vital Signs Date Time Temp Pulse Resp B/P Pulse Ox O2 Delivery O2 Flow Rate FiO2 02/11/17 08:00 98.1 83 18 145/89 96 02/10/17 18:19 21 Cardiovascular: Regular Lungs: Clear Abdomen: Other (mildly tender in LLQ with palpation ) Extremities: No edema A/P Assessment and Plan 71 year old female ? ischemic colitis; with severe ileus -Tolerating regular diet -OOB and mobilize -+BM -Continue non operative treatment -GS clear for DC; no need to follow up with Dr. Castillo Attending Statement ischemic colitis appears to be resolving with non operative mgnt ok to d/c Attestation The exam, history, and the medical decision-making described in the above note were completed with the assistance of the mid-level provider. I reviewed and agree with the findings presented. I attest that I had a [id number] encounter with the patient on the same day, and personally performed and documented my assessment and findings in the medical record. Carmela Lambert Feb 11, 2017 10:34 William Castillo MD Feb 14, 2017 21:32
[2017-02-11 10:44] LABS: BICARBONATE 28.5 MEQ/L (21.0-32.0); POTASSIUM 3.2 MEQ/L (3.5-5.1)
[2017-02-11 11:00] VITALS: PULSE 81
[2017-02-11] MEDS: SODIUM CHLORIDE 0.9% FLUSH 5 ML FLUSH FLUSH SCH (11:08)
[2017-02-11 12:12] VITALS: BP 128/79; PULSE 86; RESP 20; TEMP 99.2; O2SAT 95
[2017-02-11] MEDS ORDERED: POTASSIUM CHLORIDE 20 MEQ CONTROLLED RELEASE TAB PO ONE ×2 (12:15→15:00)
[2017-02-11] MEDS ORDERED: LOPERAMIDE HCL 2 MG CAP PO PRN (12:30)
--- NOTE | 2017-02-11 13:25 | HHI.PR ---
Subjective Subjective Remarks resting in bed, alert abd still with mild soreness, gradual improving Up ambulating today, tires easily no SOB (Rashida Leger) Review of Systems Constitutional Constitutional: Weakness (generalized,) Constitutional Remarks 10 Point ROS done, positives include some generalized , diarrhea 4, yesterday. Appetite good, no SOB at rest. Other systems negative or unremarkable 1 diarrhea stool this a.m. around 11:00 otherwise negative (Rashida Leger) GI/Abdomen GI/Abdominal Exam: Diarrhea (Rashida Leger) Musculoskeletal MS: Weakness (generalized) (Rashida Leger) Integumentary Skin: Wounds (Rashida Leger) Psychiatric Psychiatric: Normal Mood, Anxiety (mild) (Rashida Leger) Vitals/Results Intake & Output 02/10/17 02/10/17 02/11/17 15:00 23:00 07:00 Intake Total 1140 ml 120 ml Balance 1140 ml 120 ml Intake Oral 1140 ml 120 ml # Voids 4 2 # Bowel Movements 1 1 Vital Signs Vital Signs Date Time Temp Pulse Resp B/P Pulse Ox O2 Delivery O2 Flow Rate FiO2 02/11/17 12:12 99.2 86 20 128/79 95 02/11/17 08:00 98.1 83 18 145/89 96 02/11/17 04:00 99.0 87 20 131/80 94 02/11/17 00:00 99.2 84 20 150/79 93 02/10/17 23:27 90 02/10/17 20:58 99.4 89 16 161/75 95 02/10/17 18:19 97 21 02/10/17 16:00 99.7 92 17 143/73 97 02/10/17 14:00 91 (Rashida Leger) CBC/BMP: 02/10/17 0749 02/11/17 0944 Lab Results Laboratory Tests Test 02/11/17 09:44 Sodium Level 141 MEQ/L Potassium Level 3.2 MEQ/L Chloride Level 103 MEQ/L Carbon Dioxide Level 28.5 MEQ/L Anion Gap 10 MEQ/L Blood Urea Nitrogen 6 MG/DL Creatinine 0.68 MG/DL Estimat Glomerular Filtration 85 ML/MIN Rate Random Glucose 132 MG/DL Calcium Level 8.1 MG/DL Imaging Remarks Last Impressions Abdomen X-Ray 02/10/17 0700 Signed Impressions: Service Date/Time: Friday, February 10, 2017 09:13 - CONCLUSION: Nonspecific bowel gas pattern. Kavon Carson MD Abdomen/Pelvis CT 02/08/17 0000 Signed Impressions: Service Date/Time: Wednesday, February 08, 2017 19:13 - CONCLUSION: 1. The celiac and SMA vessels are patent. 2. Mild narrowing at the origin of the left renal artery. 3. Atherosclerotic changes and tortuosity of the abdominal aorta. No aneurysmal dilatation. 4. Multiple dilated loops of small bowel filled with fluid and air suggestive of either a diffuse small bowel ileus versus a distal small bowel obstruction. This is new compared to the prior study. Ki Pritchard MD Current Medications Active Medications Loperamide HCl (Imodium) 2 mg UNSCH PRN PO; Start 02/11/17 at 12:30 Potassium Chloride 40 meq 40 meq ONCE ONCE PO Last administered on 02/10/17 21 :10; Admin Dose 40 MEQ; Start 02/10/17 at 20:00; Stop 02/10/17 at 20:01; Status DC Potassium Chloride (KCl 10 Meq Premix Inj) 100 ml @ 100 mls/hr BOLUS ONCE IV Last administered on 02/10/17 18:02; Admin Dose 100 MLS/HR; Start 02/10/17 at 15:30; Stop 02/10/17 at 16:29; Status DC Potassium Chloride (KCl) 40 meq ONCE ONCE PO Last administered on 02/10/17 18: 02; Admin Dose 40 MEQ; Start 02/10/17 at 15:30; Stop 02/10/17 at 15:31; Status DC Potassium Chloride (KCl) 40 meq ONCE ONCE PO; Start 02/11/17 at 12:15; Stop at 12:16; Status DC (Rashida Leger) Physical Exam General General Appearance: No Acute Distress, Comfortable, Obese (Rashida Leger) Eyes Eye Exam: Pupils Equal, Sclera White, Extraocular Movement Intact (Rashida Leger) Ears & Nose Ears & Nose Exam: Nasal Mucosa [place] [employer] (Rashida Leger M. ENDING MACHINE OPERATOR) Throat Throat Exam: Oral Mucosa [place] [employer] & Moist ([place],Susan M. ENDING MACHINE OPERATOR) Neck Neck Exam: Neck Supple, Trachea Midline ([place],Susan M. ENDING MACHINE OPERATOR) Pulmonary Resp Exam: Clear Bilaterally, Breath Sounds Equal (AfricaDilmaRashida M. ENDING MACHINE OPERATOR) Cardiology CV Exam: Regular, Normal Sinus Rhythm (DamascusDilmaRashida M. ENDING MACHINE OPERATOR) Gastrointestinal/Abdomen GI Exam: Soft, Bowel Sounds Present (diarrhea stool 1 today), Non-Distended ( improving) GI Remarks Diarrhea continues especially after eating, x 4/24 hours (AfricaRashida da silva. ENDING MACHINE OPERATOR) Musculoskeletal MS Exam: Joints Intact, Good Strength ([place],Susan M. ENDING MACHINE OPERATOR) Integumentary Skin Exam: Warm, Dry (DamascusRashida M. ENDING MACHINE OPERATOR) Extremeties Extremities Exam: No Edema, Pedal Pulses Palpable ([place],Rashida M. ENDING MACHINE OPERATOR) Neurologic Neuro Exam: Alert, Awake, Oriented, Speech Clear, Moving All Extremities ( Rashida Leger M. ENDING MACHINE OPERATOR) VTE Prophylaxis VTE Prophylaxis Device: SCDs ([place],Susan M. ENDING MACHINE OPERATOR) PUD Prophylasis PUD Prophylaxis: Protonix (AfricaRashida M. ENDING MACHINE OPERATOR) Assessment/Plan Assessment/Plan Acute Ischemic Colitis, stabilizing and resolving appreciate GI consult, continue IV Flagyl, transition to by mouth on discharge s/p colonoscopy 02/08 findings noted IV abx empirically Gen Surgery was consulted, cleared for discharge today Eating regular food now, appetite fair Leukocytosis / 11.8, lactic acidosis resolved improving, labs reviewed , temp 99.2 high over past 24 hours cont Antibiotic therapy Acute Renal failure ,d/t above also Improving Hypokalemia, extra dose potassium today. Protein calorie malnutrition, moderate Discussed the need for nutritional intake of good protein sources, patient understands Discussed good dietary habits today. Hypertension stable cont current BP meds SCD for DVT prophylaxis Discharge planning in process for for home. Diarrhea 4 over past 24 hours but not asking for any when necessary medications. Imodium when necessary. Patient up in room in chair this a.m., generalized fatigue, medically stable for discharge today or tomorrow. (Rashida Leger M. ENDING MACHINE OPERATOR) Assessment/Plan pt is seen & examined had 3 loose BM this am / mild abd discomfort tolerating diet abd is soft better now eager to go home is at bedside po abx Replace kcl medically stable for d/c d/c home f/u pcp f/u GI see Orders d/w Rashida d/w PT & d/w DR wagner (Eliana Rodriguez MD) Rashida Leger Feb 11, 2017 13:25 Eliana Rodriguez MD Feb 11, 2017 15:38
[2017-02-11] MEDS: ACETAMINOPHEN/HYDROcodone 325 MG/5 MG TAB PO PRN (14:41)
[2017-02-11] MEDS ORDERED: CIPR500T2 PO (15:41)
[2017-02-11] MEDS ORDERED: HYDR-3516 PO (15:41)
[2017-02-11] MEDS ORDERED: METR-1 PO (15:41)
[2017-02-11 16:45] VITALS: BP 158/76; PULSE 84; RESP 20; TEMP 99.2; O2SAT 96
--- NOTE | 2017-04-11 14:03 | HHI.DS ---
Discharge Summary Admission Date Feb 05, 2017 at 22:44 Discharge Date: Feb 11, 2017 Admitting Diagnosis colitis (1) Colitis (2) Sepsis Procedures 02/08/2017 colonoscopy with findings of: IMPRESSIONS: 1. Circumferential abnormal mucosa was found in the descending colon; biopsy was performed using cold forceps 2. Abnormal mucosa was found in the sigmoid colon; biopsy was performed using cold forceps 3. The colonic mucosa appeared normal in the ascending colon 4. The colonic mucosa appeared normal in the rectum 5. Retroflexed views revealed internal hemorrhoids 6. Retroflexed views revealed small internal hemorrhoids 7. Revealed external hemorrhoids RECOMMENDATIONS: 1. Await biopsy results. Biopsy results will not be ready for 7-10 days. If you don't hear from us in two weeks, call our office for results. 2. Surgery consult and CTA RECALL: Return 4 weeks Colonoscopy, pending biopsy results Imaging Last Impressions Abdomen X-Ray 02/10/17 0700 Signed Impressions: Service Date/Time: Friday, February 10, 2017 09:13 - CONCLUSION: Nonspecific bowel gas pattern. Kavon Carson MD Abdomen/Pelvis CT 02/08/17 0000 Signed Impressions: Service Date/Time: Wednesday, February 08, 2017 19:13 - CONCLUSION: 1. The celiac and SMA vessels are patent. 2. Mild narrowing at the origin of the left renal artery. 3. Atherosclerotic changes and tortuosity of the abdominal aorta. No aneurysmal dilatation. 4. Multiple dilated loops of small bowel filled with fluid and air suggestive of either a diffuse small bowel ileus versus a distal small bowel obstruction. This is new compared to the prior study. Ki Pritchard MD Hospital Course This is a pleasant 71-year-old white female who was in her usual state of health. She went and ate at the [employer] and approximately an hour later began having symptoms of severe nausea, vomiting and diarrhea. The patient also noted severe abdominal cramping and stated that she has never been sick like this before. The patient went home and tried to rest but symptoms continued to worsen and she was brought to the emergency room per her for evaluation. The patient does have a history of gastroplasty approximately 20 years ago according to the record, but other than that has had no issues with her abdomen. The patient denies any chest pain, no shortness of breath, no acute weight loss or weight gain, no fever before last night, and no headache. When the patient presented to the emergency room she did complain of generalized malaise, fever and chills. The patient also noted some pain on urination. She stated that this has been occurring for the past few days before admission to the hospital. She did not note any hematuria. DIAGNOSTIC DATA Initially in the ER WBC count 25.3 now 17.4, hemoglobin 14.3, hematocrit 44.1, platelet count 259, neutrophil count 93.6, lymphocyte count 1.7. Chemistry: Sodium 144, potassium 4.1, chloride 109, carbon dioxide 24.1, anion gap 11, BUN 26, creatinine 1.34, GFR 39, glucose 145, calcium 8.1. Urine is dark yellow, cloudy, pH is 6, specific gravity 1.029, protein is 30, trace of glucose, negative ketones, trace of occult blood, negative nitrites, bilirubin, urobilinogen is 2, large mount of leukocyte esterase, moderate amount of bacteria. Urine culture is indicated and pending. C. Diff toxin PCR negative. IMAGING Abdomen and pelvic CT shows moderate severity uncomplicated left-sided colitis nonspecific but most likely infectious, C. Diff could possibly be the differential. ASSESSMENT 1. Colitis, non-C. Diff. 2. Lactic acid sepsis. 3. Leukocytosis, probable secondary to UTI. 4. Acute kidney injury. 5. Gastroesophageal reflux disease. 6. Hypertension. During the course of the hospitalization, the following took place: Patient put on IV fluids, continued on antibiotics Labs were monitored GI was consulted Electrolytes were replaced as needed Gastroenterology recommended colonoscopy On 02/08, patient had colonoscopy with findings Circumferential abnormal mucosa was found in the descending colon; biopsy was performed using cold forceps/ Abnormal mucosa was found in the sigmoid colon; biopsy was performed using cold forceps/ The colonic mucosa appeared normal in the ascending colon/The colonic mucosa appeared normal in the rectum/internal hemorrhoids/small internal hemorrhoids/external hemorrhoids Biopsy was obtained, recommendation per GI was for surgery consultation and CTA. Surgery was consulted, CTA results or follow. No indication if any acute vascular involvement, surgery signed off. Stools were checked, negative for C. difficile Diet was advanced slowly, patient tolerated well. Abdominal pain improved. Electrolytes stabilized. Renal function improved after IV fluid Blood pressure control with home medications Patient was stable for discharge Patient discharged home in stable condition, instructed to follow up with GI, PCP Pt Condition on Discharge: Stable Discharge Disposition: Discharge Home Discharge Instructions DIET: Follow Instructions for: Heart Healthy Diet Fluid Restrictions: none Activities you can perform: Regular-No Restrictions Follow up Referrals: Gastroenterology - 3 Weeks PCP Follow-up - 1 Week New Medications: Ciprofloxacin (Ciprofloxacin) 500 Mg Tab 500 MG PO BID Infection #8 Ref 0 TAB Metronidazole (Flagyl) 500 Mg Tab 500 MG PO TID Infection #12 Ref 0 TAB Hydrocodone-Acetaminophen (Hydrocodone-Acetaminophen) 5-325 mg Tab 1 TAB PO Q6H PRN PAIN SCALE 4 TO 10 #30 TAB Continued Medications: Dulaglutide Inj (Trulicity Inj) 0.75 Mg/0.5 Ml Pen 0.75 MG SQ Q7D Blood Sugar Management #4 Ref 0 PEN Lisinopril-Hctz (Lisinopril-Hctz) 20-12.5 Mg Tab 1 TAB PO DAILY Blood Pressure Management #30 Ref 0 TAB Omeprazole (Omeprazole) 20 Mg Tab 20 MG PO DAILY #30 Ref 0 TAB Oxybutynin (Ditropan) 5 Mg Tab 10 MG PO DAILY Urinary Symptom Managemen #90 Ref 0 TAB Simvastatin (Simvastatin) Unknown Strength Tab Unknown Dose PO DAILY Cholesterol Management #30 Ref 0 TAB Venlafaxine (Effexor) 75 Mg Tab 150 MG PO Q12H #120 Ref 0 TAB Joana Medley April 11, 2017 14:03
== END 2017-02-11 17:08 | disposition home or self-care (01) | DRG 871 ==
LOC: NEPC 19:34 → NEDA 22:44 → N05A 02-06 01:10
PROVIDERS: ADMIT Specialist; ATTEND Specialist
PROC: 0DBN8ZX Excision of Sigmoid Colon, Via Natural or Artificial Opening Endoscopic, Diagnostic (ICD-10-PCS; 2017-02-08)
PROC: 0DBM8ZX Excision of Descending Colon, Via Natural or Artificial Opening Endoscopic, Diagnostic (ICD-10-PCS; principal; 2017-02-08 11:30)
DX: A41.9 Sepsis, unspecified organism (principal); K55.039 Acute (reversible) ischemia of large intestine, extent unspecified; N17.9 Acute kidney failure, unspecified; E87.2 Acidosis; E44.0 Moderate protein-calorie malnutrition; K51.50 Left sided colitis without complications; E86.0 Dehydration; K56.7 Ileus, unspecified; N39.0 Urinary tract infection, site not specified; I10 Essential (primary) hypertension; Z96.643 Presence of artificial hip joint, bilateral; Z96.653 Presence of artificial knee joint, bilateral; K21.9 Gastro-esophageal reflux disease without esophagitis; R30.9 Painful micturition, unspecified; E78.00 Pure hypercholesterolemia, unspecified; E87.6 Hypokalemia; K64.8 Other hemorrhoids; K64.4 Residual hemorrhoidal skin tags
CPT/HCPCS: 74000; 74174; 74177; 76937; 80048; 80053; 80074; 81001; 83605; 83690; 85025; 85027; 87040; 87077; 87086; 87186; 87205; 87328; 87329; 87493; 88305; 96361; 96374; 96375; 96376; C9113; J0744; J2270; J2405; J3480; J7030; Q9967